=== PATIENT | male | born 1945 | race Caucasian/White ===

== ENCOUNTER 2019-12-21 20:00 | Outpatient (CLI) | payer MEDICARE, SELFPAY | END 2019-12-21 20:01 | disposition home or self-care (01) | LOC: SLEEP 12-22 09:44 | PROVIDERS: Family Provider Internal Medicine; PCP Internal Medicine; Visit Provider Family Medicine | DX: G47.10 Hypersomnia, unspecified (principal); R53.83 Other fatigue; R06.83 Snoring; G47.33 Obstructive sleep apnea (adult) (pediatric) | CPT/HCPCS: 95810 ==

== ENCOUNTER 2020-02-09 20:00 | Outpatient (CLI) | payer MEDICARE, SELFPAY | END 2020-02-09 20:01 | disposition home or self-care (01) | LOC: SLEEP 02-10 08:14 | PROVIDERS: Visit Provider Family Medicine | DX: G47.33 Obstructive sleep apnea (adult) (pediatric) (principal) | CPT/HCPCS: 95811 ==

== ENCOUNTER 2020-09-13 13:42 | Outpatient (CLI) | payer OTHER, SELFPAY ==
--- NOTE | 2020-09-13 13:47 | US_ITS ---
WS: [id number] RENAL ULTRASOUND HISTORY: STAGE 3 CHRONIC KIDNEY DZ COMPARISON: None available. TECHNIQUE: 2-D and color Doppler imaging of the kidney submitted. Right kidney: 13.1 cm x 5.2 cm x 4.6 cm. Normal size kidney with no hydronephrosis. Very tiny cyst in the renal pelvis. Maximum diameter of 6 mm lower pole. Left kidney: LEFT kidney is been surgically removed. No mass at the LEFT renal bed. Normal echogenicity with no hydronephrosis or mass. Aorta: Normal. Urinary Bladder: Normal distention. Spleen is top normal size at 12.3 cm in length. US/US renal BI* [id number] IMPRESSION: 1. Status post LEFT nephrectomy. 2. Normal size RIGHT kidney with a very tiny renal cyst in the lower pole.
== END 2020-09-13 13:43 | disposition home or self-care (01) ==
LOC: RAD 13:43
PROVIDERS: Visit Provider Internal Medicine Nephrology
DX: N18.32 Chronic kidney disease, stage 3b (principal); Z90.5 Acquired absence of kidney
CPT/HCPCS: 76770

== ENCOUNTER 2021-06-22 21:54 | Emergency (ER) | payer OTHER, MEDICARE, SELFPAY ==
[2021-06-22 22:34] VITALS: BP 120/55; PULSE 88; RESP 22; TEMP 37.3; O2SAT 92; BMI 33.3
--- NOTE | 2021-06-22 22:37 | ED_ITS ---
Documented by User: RUBEN Teran 06/23/21 01:26 HPI - General Adult General: Chief complaint: Weakness Stated complaint: GENERALIZED WEAKNES/ DARK, TARRY STOOLS Time Seen by Provider: 06/22/21 22:33 History of Present Illness: 76-year-old male patient comes in today with complaints of illness for 2 weeks. Patient reports some loose stools with some dark color which he was concerned may be a sign of blood. Patient does have a positive COVID-19 exposure 3 weeks ago. Patient's been ill for 2 weeks. Patient appears mildly unwell but not toxic. Patient appears in no pain. Patient does have a history of chronic kidney disease, GERD, but cannot recall routine medications. MD complaint: Weakness and loose stools Onset (ago): week(s) Associated symptoms: Reports cough and nausea Review of Systems Resp: Reports: non-productive cough GI: Reports: nausea, diarrhea and change in stool character Physical Exam Const: COMMON NORMALS: alert HENMT: COMMON NORMALS: normocephalic and TM's normal bilaterally HEAD & SCALP: normocephalic NOSE: Nasal discharge present TYMPANIC MEMBRANE: TM's normal bilaterally MOUTH: Abnormal oral and palatal mucosa present (Dry) Eye: COMMON NORMALS: Equal, round and reactive pupils present and EOMs intact bilaterally PUPIL: Yes Equal, round and reactive pupils present Neck/C-Spine: COMMON NORMALS: full ROM Resp: COMMON NORMALS: normal respiratory effort AUSCULTATION: diminished lung sounds (Bilateral bases) Cardio: COMMON NORMALS: regular rate and regular rhythm RATE: regular rate RHYTHM: regular rhythm GI: COMMON NORMALS: Soft to palpation and non-tender PALPATION: Yes Soft to palpation Extremity: COMMON NORMALS: normal to inspection and no pedal edema Neuro: SENSORIUM/ORIENTATION: Yes alert Psych: COMMON NORMALS: cooperative Skin: COMMON NORMALS: no rashes or lesions noted GENERAL SKIN EXAM: no rashes or lesions noted Course ED course: 0, reviewed patient with Dr. Gagnon. He agreed with plan to discharge patient to home with oxygen and treatment for Covid pneumonia. We will cover with doxycycline for possible secondary bacterial etiology since it has been almost 2 weeks since patient's been ill. Patient will also be placed on dexamethasone, albuterol sulfate, and pantoprazole. I encourage plenty of fluids and follow-up with primary care in 3 days for recheck. Reevaluation(s): Reevaluation #1: 0030, patient is more alert after 1 L of IV fluid, we will infuse a second liter for dehydration. Discussed with patient his abnormal kidney function which he reports is chronic. Vital Signs: Vital signs: Vital Signs Temperature 99.1 F 06/22/21 22:34 Pulse Rate 79 06/23/21 01:00 Respiratory Rate 20 H 06/23/21 01:00 Blood Pressure 120/55 06/22/21 22:34 Pulse Oximetry 93 06/23/21 01:00 [facility] - General Adult Medical Decision Making 76-year-old male patient comes in today for concerns of diarrhea discolored stools and weakness. Patient's been ill for 2 weeks. On exam lungs are decreased in the bases. Patient was 90% on room air, heart rate was in the 80s, respirations were 22. Abdomen was soft nontender. Skin is warm and dry. No edema. EKG shows normal sinus rhythm without any ectopy or ST elevation. Differential diagnosis includes GI bleed, pneumonia, COVID-19. COVID-19 antigen test was positive, hemoglobin is 9.8, creatinine was 2.3, sodium was 133, BUN was 60. I reviewed this with Dr. Gagnon with information up from patient stating that he has some renal dysfunction. Chest x-ray noted some patchy pneumonia suggestive of a viral pneumonia. Patient was infused with 2 L of IV fluids, given 6 mg of dexamethasone and covered with doxycycline for secondary bacterial infection. Patient will be discharged home with oral antibiotics, steroids, albuterol, and pantoprazole. Patient normally takes Prilosec but has been without it for 2 to 3 weeks we will restart him due to the difference in his stools although we believe the anemia is most likely due to his chronic kidney disease. I reviewed this with Dr. Gagnon who agreed with plan. Lab Data : 06/22/21 22:45 06/22/21 22:45 Radiology Impressions Chest X-Ray 06/22/21 22:43 IMPRESSION: Nonspecific bilateral peripheral lower lung predominant opacity. Possible interstitial disease or infection. Laboratory Results WBC 7.3 10^3/uL (4.0-10.0) 06/22/21 22:45 RBC 3.48 10^6/uL (4.1-5.3) L 06/22/21:45 Hgb 9.8 g/dL (11.7-16.6) L 06/22/21:45 Hct 30.6 % (42.0-52.0) L 06/22/21:45 MCV 87.9 fl (80-94) 06/22/21:45 MCH 28.2 pg (28.0-34.0) 06/22/21: MCHC 32.0 g/dL (30.0-36.0) 06/22/21:45 RDW 15.4 % (12.1-15.1) H 06/22/21:45 Plt Count 100 10^3/cmm (130-400) L 06/22/21: MPV 13.7 fL (7.4-10.4) H 06/22/21:45 Neut % (Auto) 79.8 % 06/22/21:45 Lymph % (Auto) 9.5 % 06/22/21:45 [place] % (Auto) 9.8 % 06/22/21:45 Eos % (Auto) 0.1 % 06/22/21:45 Baso % (Auto) 0.1 % 06/22/21:45 Neut # (Auto) 5.79 10^3/uL (1.8-7.7) 06/22/21:45 Lymph # (Auto) 0.7 10^3/uL (0.8-4.8) L 06/22/21:45 [place] # (Auto) 0.7 10^3/uL (0.2-0.9) 06/22/21:45 Eos # (Auto) 0.0 10^3/uL (0.0-0.8) 06/22/21:45 Baso # (Auto) 0.0 10^3/uL (0.0-0.1) 06/22/21:45 Nucleated RBC % (auto) 0 % 06/22/21:45 Nucleated RBCs # 0.0 /100WBC 06/22/21:45 Sodium 133 mmol/L (136-145) L 06/22/21: Potassium 4.4 mmol/L (3.5-5.1) 02/05/22 22:45 Chloride 104 mmol/L (98-107) 06/22/21 22:45 Carbon Dioxide 13 mmol/L (22-29) L 06/22/21 22:45 Anion Gap 20.4 (5-19) H 06/22/21 22:45 BUN 60 mg/dL (8-23) H 06/22/21 22:45 Creatinine 2.3 mg/dL (0.7-1.2) H 06/22/21 22:45 GFR Calculation Not Reportable 06/22/21 22:45 Glucose 98 mg/dL (65-115) 06/22/21 22:45 Calculated Osmolality 293 mOsm/kg (285-295) 06/22/21 22:45 Lactic Acid 1.3 mmol/L (0.5-2.2) 06/22/21 22:57 Calcium 8.9 mg/dL (8.5-10.5) 06/22/21 22:45 Total Bilirubin 0.3 mg/dL (0.15-1.2) 06/22/21 22:45 AST 109 U/L (0-40) H 06/22/21 22:45 ALT 89 U/L (0-41) H 06/22/21 22:45 Alkaline Phosphatase 134 IU/L (40-130) H 06/22/21 22:45 Troponin T Baseline 25 ng/L (0-15) H 06/22/21 22:45 Total Protein 6.8 g/dL (6.6-8.7) 06/22/21 22:45 Albumin 3.8 g/dL (3.5-5.2) 06/22/21 22:45 Globulin 3.0 g/dL (1.3-4.6) 06/22/21 22:45 SARS-CoV-2 Ag (Rapid) Positive (Negative) H 06/22/21 23:03 EKG Data EKG 1: Interpretation: 2255, Review of the EKG noted a sinus rhythm with no ST elevation or ectopy. Regular rate at 78 bpm. Computer generated interpretation: Chest X-Ray 06/22/21 22:43 IMPRESSION: Nonspecific bilateral peripheral lower lung predominant opacity. Possible interstitial disease or infection. Discharge Plan Discharge Patient Disposition: Home Clinical Impression: Pneumonia due to 2019 novel coronavirus Condition: Stable Prescriptions: New pantoprazole 40 mg tablet,delayed release (DR/EC) 40 mg PO DAILY Qty: 30 0RF doxycycline monohydrate 100 mg capsule 100 mg PO BID 7 Days Qty: 14 0RF dexamethasone 6 mg tablet 6 mg PO DAILY Qty: 7 0RF albuterol sulfate 90 mcg/actuation HFA aerosol inhaler 2 inh inhalation QID 7 Days Qty: 8.5 0RF Discharge Orders: Discharge ED (Routine); Ordered 06/23/21 Ordered By: Remi Gar Other Ambulatory Orders: DME: Oxygen (Order) Location: None Selected Ordered By: Remi Gar Discharge Diet: Usual diet Discharge Activity: Increase activity as tolerated Patient Instructions: Viral Pneumonia (ED), Opioid Safety Activity Restrictions/Additional Instructions: Home and rest. Activity as tolerated. Use a walker or cane to help get herself up and walk in the home. Wear oxygen until your shortness of breath improves. Follow-up with primary care in 3 to 5 days for recheck. Return to the ER for worsening shortness of breath, chest pain, or new concerns. Coding Level of Care Code ED Director Of Hemophilia for Chg Fwd Exam Comprehensive Medical Decision Making Moderate Complexity Time Spent (min) 40 Documented by User: Phil Gagnon DO 06/23/21 02:09 HPI - General Adult General: Chief complaint: Weakness Stated complaint: GENERALIZED WEAKNES/ DARK, TARRY STOOLS Time Seen by Provider: 06/22/21 22:33 Course Vital Signs: Vital signs: Vital Signs Temperature 99.1 F 06/22/21 22:34 Pulse Rate 79 06/23/21 01:00 Respiratory Rate 20 H 06/23/21 01:00 Blood Pressure 120/55 06/22/21 22:34 Pulse Oximetry 93 06/23/21 01:00 MDM - General Adult Medical Decision Making 76-year-old male patient comes in today for concerns of diarrhea discolored stools and weakness. Patient's been ill for 2 weeks. On exam lungs are decreased in the bases. Patient was 90% on room air, heart rate was in the 80s, respirations were 22. Abdomen was soft nontender. Skin is warm and dry. No edema. EKG shows normal sinus rhythm without any ectopy or ST elevation. Differential diagnosis includes GI bleed, pneumonia, COVID-19. COVID-19 antigen test was positive, hemoglobin is 9.8, creatinine was 2.3, sodium was 133, BUN was 60. I reviewed this with Dr. Gagnon with information up from patient stating that he has some renal dysfunction. Chest x-ray noted some patchy pneumonia suggestive of a viral pneumonia. Patient was infused with 2 L of IV fluids, given 6 mg of dexamethasone and covered with doxycycline for secondary bacterial infection. Patient will be discharged home with oral antibiotics, steroids, albuterol, and pantoprazole. Patient normally takes Prilosec but has been without it for 2 to 3 weeks we will restart him due to the difference in his stools although we believe the anemia is most likely due to his chronic kidney disease. I reviewed this with Dr. Gagnon who agreed with plan. This patient was originally seen by RUBEN Chakraborty.? I agree with his history, evaluation, and treatment. Lab Data : 06/22/21 22:45 06/22/21 22:45 Radiology Impressions Chest X-Ray 06/22/21 22:43 IMPRESSION: Nonspecific bilateral peripheral lower lung predominant opacity. Possible interstitial disease or infection. Laboratory Results WBC 7.3 10^3/uL (4.0-10.0) 06/22/21 22:45 RBC 3.48 10^6/uL (4.1-5.3) L 06/22/21 22:45 Hgb 9.8 g/dL (11.7-16.6) L 06/22/21 22:45 Hct 30.6 % (42.0-52.0) L 06/22/21 22:45 MCV 87.9 fl (80-94) 06/22/21 22:45 MCH 28.2 pg (28.0-34.0) 06/22/21 22:45 MCHC 32.0 g/dL (30.0-36.0) 06/22/21 22:45 RDW 15.4 % (12.1-15.1) H 06/22/21 22:45 Plt Count 100 10^3/cmm (130-400) L 06/22/21 22:45 MPV 13.7 fL (7.4-10.4) H 06/22/21 22:45 Neut % (Auto) 79.8 % 06/22/21 22:45 Lymph % (Auto) 9.5 % 06/22/21 22:45 [place] % (Auto) 9.8 % 06/22/21 22:45 Eos % (Auto) 0.1 % 06/22/21 22:45 Baso % (Auto) 0.1 % 06/22/21 22:45 Neut # (Auto) 5.79 10^3/uL (1.8-7.7) 06/22/21:45 Lymph # (Auto) 0.7 10^3/uL (0.8-4.8) L 06/22/21 22:45 [place] # (Auto) 0.7 10^3/uL (0.2-0.9) 06/22/21:45 Eos # (Auto) 0.0 10^3/uL (0.0-0.8) 06/22/21 22:45 Baso # (Auto) 0.0 10^3/uL (0.0-0.1) 06/22/21:45 Nucleated RBC % (auto) 0 % 06/22/21: Nucleated RBCs # 0.0 /100WBC 06/22/21 22:45 Sodium 133 mmol/L (136-145) L 06/22/21 22:45 Potassium 4.4 mmol/L (3.5-5.1) 06/22/21 22:45 Chloride 104 mmol/L (98-107) 06/22/21 22:45 Carbon Dioxide 13 mmol/L (22-29) L 06/22/21 22:45 Anion Gap 20.4 (5-19) H 06/22/21 22:45 BUN 60 mg/dL (8-23) H 06/22/21 22:45 Creatinine 2.3 mg/dL (0.7-1.2) H 06/22/21 22:45 GFR Calculation Not Reportable 06/22/21 22:45 Glucose 98 mg/dL (65-115) 06/22/21 22:45 Calculated Osmolality 293 mOsm/kg (285-295) 02/05/22 22:45 Lactic Acid 1.3 mmol/L (0.5-2.2) 06/22/21 22:57 Calcium 8.9 mg/dL (8.5-10.5) 06/22/21 22:45 Total Bilirubin 0.3 mg/dL (0.15-1.2) 06/22/21 22:45 AST 109 U/L (0-40) H 06/22/21 22:45 ALT 89 U/L (0-41) H 06/22/21 22:45 Alkaline Phosphatase 134 IU/L (40-130) H 06/22/21 22:45 Troponin T Baseline 25 ng/L (0-15) H 06/22/21 22:45 Total Protein 6.8 g/dL (6.6-8.7) 06/22/21 22:45 Albumin 3.8 g/dL (3.5-5.2) 06/22/21 22:45 Globulin 3.0 g/dL (1.3-4.6) 06/22/21 22:45 SARS-CoV-2 Ag (Rapid) Positive (Negative) H 06/22/21 23:03 EKG Data EKG 1: Computer generated interpretation: Chest X-Ray 06/22/21 22:43 IMPRESSION: Nonspecific bilateral peripheral lower lung predominant opacity. Possible interstitial disease or infection. Discharge Plan Discharge Patient Disposition: Home Clinical Impression: Pneumonia due to 2019 novel coronavirus Condition: Stable Prescriptions: New pantoprazole 40 mg tablet,delayed release (DR/EC) 40 mg PO DAILY Qty: 30 0RF doxycycline monohydrate 100 mg capsule 100 mg PO BID 7 Days Qty: 14 0RF dexamethasone 6 mg tablet 6 mg PO DAILY Qty: 7 0RF albuterol sulfate 90 mcg/actuation HFA aerosol inhaler 2 inh inhalation QID 7 Days Qty: 8.5 0RF Discharge Orders: Discharge ED (Routine); Ordered 06/23/21 Ordered By: Remi Gar Other Ambulatory Orders: DME: Oxygen (Order) Location: None Selected Ordered By: Remi Gar Discharge Diet: Usual diet Discharge Activity: Increase activity as tolerated Patient Instructions: Viral Pneumonia (ED), Opioid Safety Activity Restrictions/Additional Instructions: Home and rest. Activity as tolerated. Use a walker or cane to help get herself up and walk in the home. Wear oxygen until your shortness of breath improves. Follow-up with primary care in 3 to 5 days for recheck. Return to the ER for worsening shortness of breath, chest pain, or new concerns. Coding Level of Care Code ED Director Of Hemophilia for Gabig Fwd Exam Comprehensive Medical Decision Making Moderate Complexity Time Spent (min) 40
--- NOTE | 2021-06-22 22:43 | XRR_ITS ---
PROCEDURE INFORMATION: Exam: XR Chest Exam date and time: 06/22/2021 10:43 PM Age: 76 years old Clinical indication: Cough; Additional info: Weakness, cough TECHNIQUE: Imaging protocol: XR of the chest. Views: 1 view. COMPARISON: No relevant prior studies available. FINDINGS: Lungs: Ill-defined subpleural opacity in the lateral aspect of the lower lungs bilaterally. Pleural spaces: There is no pleural effusion or pneumothorax. Heart/Mediastinum: Cardiomediastinal contours are unremarkable. Bones/joints: Bones are unremarkable. XR/XR chest 1V portable [id number] IMPRESSION: Nonspecific bilateral peripheral lower lung predominant opacity. Possible interstitial disease or infection.
--- NOTE | 2021-06-22 22:44 | ECG_ITS ---
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 Measurements Intervals [place] Rate: 75 P: 81 AL: 161 QRS: 10 QRSD: 81 T: 31 QT: 368 QTc: 413 Interpretive Statements SINUS RHYTHM No previous ECG available for comparison Electronically Signed On 06-23-2021 16:59:11 SALES ANALYTICS MANAGER by Francheska Ortiz M.D. [id number]
[2021-06-22] MEDS: sodium chloride 0.9% 1,000 ML 999 ML IV (23:00)
[2021-06-22 23:07] LABS: Basophils % 0.1 %; Eosinophils % 0.1 %; Hematocrit 30.6 % (42.0-52.0); Hemoglobin 9.8 g/dL (11.7-16.6); Lymphocytes # 0.7 10^3/uL (0.8-4.8); Lymphocytes % 9.5 %; Mean Corpuscular Hemoglobin 28.2 pg (28.0-34.0); Mean Corpuscular Volume 87.9 fl (80-94); Mean Platelet Volume 13.7 fL (7.4-10.4); Monocytes # 0.7 10^3/uL (0.2-0.9); Monocytes % 9.8 %; Neutrophils # 5.79 10^3/uL (1.8-7.7); Neutrophils % 79.8 %; Nucleated Red Blood Cells % 0 %; Platelet Count 100 10^3/cmm (130-400); Red Blood Count 3.48 10^6/uL (4.1-5.3); Red Cell Distribution Width 15.4 % (12.1-15.1); White Blood Count 7.3 10^3/uL (4.0-10.0)
[2021-06-22 23:31] LABS: Alanine Aminotransferase 89 U/L (0-41); Albumin Level 3.8 g/dL (3.5-5.2); Alkaline Phosphatase 134 IU/L (40-130); Anion Gap 20.4 (5-19); Aspartate Amino Transferase 109 U/L (0-40); Blood Urea Nitrogen 60 mg/dL (8-23); Calcium 8.9 mg/dL (8.5-10.5); Carbon Dioxide 13 mmol/L (22-29); Chloride 104 mmol/L (98-107); Glucose 98 mg/dL (65-115); Osmolality Calculated 293 mOsm/kg (285-295); Potassium 4.4 mmol/L (3.5-5.1); Sodium 133 mmol/L (136-145); Total Bilirubin 0.3 mg/dL (0.15-1.2); Total Protein 6.8 g/dL (6.6-8.7)
[2021-06-22 23:32] LABS: Lactic Sepsis W/Reflex 1.3 mmol/L (0.5-2.2)
[2021-06-22 23:34] LABS: Troponin(5th) Baseline 25 ng/L (0-15)
[2021-06-22 23:41] LABS: SARS Covid-2 Antigen Positive (Negative)
[2021-06-22] MEDS: lactated ringers 1,000 ML 999 ML IV (23:55)
[2021-06-22] MEDS: dexamethasone 10 mg/mL INJ 6 MG IVP (23:55)
[2021-06-22] MEDS: pantoprazole 40 mg SDV IVP (23:55)
[2021-06-23] MEDS: doxycycline 100 MG in sodium chloride 0.9% (plus) 100 ML IV (00:33)
--- NOTE | 2021-06-23 00:44 | ECG_ITS ---
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 Measurements Intervals [place] Rate: 76 P: 62 FL: 169 QRS: 11 QRSD: 98 T: 30 QT: 385 QTc: 435 Interpretive Statements SINUS RHYTHM WITH SINUS ARRHYTHMIA No previous ECG available for comparison Electronically Signed On 06-23-2021 17:04:03 FINISHER ACCORDION by Francheska Ortiz M.D. [id number]
[2021-06-23 00:52] VITALS: O2SAT 88; O2SAT 90; O2SAT 93
[2021-06-23 01:00] VITALS: PULSE 79; RESP 20; O2SAT 93
[2021-06-23] MEDS: albuterol 8 gm MDI 2 PUFF INHALATION (01:00)
== END 2021-06-23 01:53 | disposition home or self-care (01) ==
PROVIDERS: Emergency Provider Nurse Practitioner Family
DX: U07.1 COVID-19 (principal); J12.82 Pneumonia due to coronavirus disease 2019
CPT/HCPCS: 71045; 80053; 83605; 84484; 85025; 87426; 93005; 94640; 96361; 96365; 96375; 99284; C9113; J1100; J3490; J3535; J7030

== ENCOUNTER 2021-11-04 09:13 | Outpatient (CLI) | payer OTHER, MEDICARE, SELFPAY ==
--- NOTE | 2021-11-04 09:29 | FL_ITS ---
WS: [id number] Exam: FL barium swallow modifd [id number] Date/Time of Exam: 11/04/2021 9:29 AM Reason For Exam: Other dysphagia Fluoroscopy time: 3min [id number] minutes # of spot films: 0 Modified barium swallow was performed in conjunction with the speech therapy service. Swallowing function at the level of the oropharynx was normal. The patient experienced mild penetrati on into the laryngeal inlet when ingesting thin liquid barium solution. The patient tolerated nectar consistency, pudding consistency and solid barium mixture foodstuffs without complication. The patien t ingested the barium pill without difficulty. FL/FL barium swallow modifd [id number] IMPRESSION: 1. No aspiration was noted. 2. The patient experienced minimal penetration into the laryngeal inlet when in gesting thin liquid barium solution. An additional report of findings and recommendations will be provided by the [facility] therapy service.
== END 2021-11-04 09:14 | disposition home or self-care (01) ==
LOC: RAD 09:19
PROVIDERS: Visit Provider Family Medicine
DX: R13.19 Other dysphagia (principal)
CPT/HCPCS: 74230; 92611

== ENCOUNTER → 2022-02-27 14:30 | Outpatient (BNVA) | payer OTHER, SELFPAY | PROVIDERS: Referring Provider Family Medicine; Visit Provider Physician Assistant | DX: M48.062 Spinal stenosis, lumbar region with neurogenic claudication (principal); M51.37 Other intervertebral disc degeneration, lumbosacral region; M47.816 Spondylosis without myelopathy or radiculopathy, lumbar region | CPT/HCPCS: 72110; 99203 ==

== ENCOUNTER 2022-03-20 07:51 | Oncology outpatient (recurring) (ONCR) | payer OTHER, SELFPAY ==
[2022-03-20 09:35] LABS: Basophils % 0.3 %; Eosinophils % 0.3 %; Hemoglobin 8.4 g/dL (11.7-16.6); Lymphocytes # 0.6 10^3/uL (0.8-4.8); Mean Corpuscular Hemoglobin 24.3 pg (28.0-34.0); Mean Corpuscular Volume 83.8 fl (80-94); Monocytes # 0.3 10^3/uL (0.2-0.9); Monocytes % 8.6 %; Neutrophils # 2.73 10^3/uL (1.8-7.7); Neutrophils % 73.5 %; Nucleated Red Blood Cells % 0 %; Platelet Count 75 10^3/cmm (130-400); Red Blood Count 3.46 10^6/uL (4.1-5.3); White Blood Count 3.7 10^3/uL (4.0-10.0)
[2022-03-20 09:38] LABS: Slide Review Slide Review Perform
[2022-03-20 09:42] LABS: Reticulocyte % 1.6 % (0.5-2.0)
[2022-03-20 10:32] LABS: Ferritin 6 ng/mL (30-400); Iron 40 ug/dL (59-158); Percent Saturation 8.7 % (20-50); Total Iron Binding Capacity 458 mcg/dl; Unsaturated Iron Binding 418 ug/dL (112-347)
[2022-03-20 10:48] LABS: Vitamin B12 982 pg/mL (232-1245)
== END 2022-04-16 23:59 | disposition home or self-care (01) ==
PROVIDERS: Visit Provider Internal Medicine Hematology & Oncology
DX: D61.818 Other pancytopenia; D50.9 Iron deficiency anemia, unspecified; D72.819 Decreased white blood cell count, unspecified; D69.6 Thrombocytopenia, unspecified; Z79.899 Other long term (current) drug therapy; Z86.16 Personal history of COVID-19; Z87.891 Personal history of nicotine dependence
CPT/HCPCS: 36415; 82607; 82728; 83540; 83550; 85025; 85045; 99203; 99204

== ENCOUNTER 2022-04-03 14:10 | Outpatient (CLI) | payer OTHER, SELFPAY ==
--- NOTE | 2022-04-03 14:30 | MR_ITS ---
WS: [id number] MRI LUMBAR SPINE NONCONTRAST HISTORY: lower back pain COMPARISON: None available. TECHNIQUE: Sagittal and axial multisequence imaging is submitted. Mild increase in lumbar lordosis. No fractures or marrow edema. Disc spaces are narrowed and desiccated. Conus terminates normally at L1. L1-L2: Mild facet arthritis. No stenosis. L2-L3: Mild facet arthritis. No stenosis. L3-L4: Mild facet arthritis. Mild LEFT foraminal stenosis. No disc protrusion. L4-L5: Mild annular disc bulge. Moderate bilateral facet joint arthritis. No focal disc protrusions. Mild bilateral foraminal stenosis. L5-S1: Mild disc bulge with moderate facet joint arthritis. Prior LEFT nephrectomy. MR/MR lumbar spine wo con* [id number] IMPRESSION: 1. No high-grade central or foraminal stenosis. 2. Moderate bilateral facet joint arthritis at L4-5 and L5-S1. 3. Mild bilateral foraminal stenosis and mild LEFT foraminal stenosis at L3-4.
== END 2022-04-03 14:11 | disposition home or self-care (01) ==
LOC: RAD 14:14
PROVIDERS: PCP Family Medicine; Visit Provider Physician Assistant
DX: M47.896 Other spondylosis, lumbar region (principal); M47.897 Other spondylosis, lumbosacral region; M48.061 Spinal stenosis, lumbar region without neurogenic claudication
CPT/HCPCS: 72148

== ENCOUNTER 2022-04-07 07:39 | Day surgery (SDC) | payer OTHER, SELFPAY ==
[2022-04-03 11:58] VITALS: BMI 34.5
--- NOTE | 2022-04-07 05:56 | W.PM.OPSUD ---
Surgery/Procedure H&P Update DATE OF PROCEDURE: April 07, 2022 DATE H&P PERFORMED: 03/20/22 H&P UPDATE INFORMATION: I have reviewed H&P completed within last 30 days, I have examined patient prior to procedure and No changes to prior documentation PRIMARY INDICATION FOR PROCEDURE: Iron deficiency anemia PLANNED PROCEDURE: Operation Date: 04/07/22 08:15 Proposed Procedures p Colonoscopy 37759,K92.1(Not Applicable) - Adeel Chahal MD
[2022-04-07 08:04] VITALS: BP 180/102; PULSE 82; RESP 18; TEMP 36.8; O2SAT 96
[2022-04-07] MEDS: sodium chloride 0.9% 1,000 ML 30 ML IV (08:08)
--- NOTE | 2022-04-07 08:36 | ANES.PREANE2 ---
Pre-Anesthetic Assessment Height/Weight: Height 1.75 m Weight 106.141 kg Temp Pulse Resp BP Pulse Ox O2 Del Method 98.2 F 82 18 180/102 96 04/07/22 08:04 04/07/22 08:04 04/07/22 08:04 04/07/22 08:04 04/07/22 08:04 04/07/22 08:04 Preop Diagnosis: Iron deficiency anemia/fecal occult blood in stool Operation Date: 04/07/22 08:15 Proposed Procedures p Colonoscopy 80210,K92.1(Not Applicable) - Adeel Chahal MD Familial anesthetic complications: none Was Beta Desi taken within 24 hours: N/A Was Clonidine taken within 24 hours: N/A Last intake: Intake Last Liquid Date 04/06/22 Last Liquid Time 00:00 Last Solid Date 04/05/22 Last Solid Time 00:00 Social No alcohol and No tobacco Exam alert, oriented x 3, clear to auscultation bilaterally and regular rate & rhythm Airway Submandibular: within normal limits Cervical ROM: within normal limits Mallampati: Class II Dentition: false (upper) Comments: Comments: Missing most on lower arch CV/HEM Anemia, Hypertension and Murmur ?MVR Chronic Renal Insufficiency GI Gastroesophageal Reflux Disease Metabolic Hyperlipidemia and Morbid Obesity [facility] Lower Back Pain and Weakness Anesthetic Plan ASA status: 3 Anesthesia: MAC Medications/Allergies Home Medications Medication Instructions Recorded Confirmed Last Taken Type allopurinol 100 mg tablet 100 mg PO DAILY 02/27/22 04/07/22 Unknown History amlodipine 2.5 mg tablet 2.5 mg PO DAILY 02/27/22 04/07/22 04/07/22 History ascorbate calcium (vitamin C) 500 500 mg PO DAILY 02/27/22 04/07/22 04/05/22 History mg tablet aspirin 81 mg tablet,delayed 81 mg PO DAILY 02/27/22 04/03/22 04/03/22 History release fluticasone 100 mcg-salmeterol 50 1 inh inhalation BID 02/27/22 04/07/22 04/07/22 History mcg/dose blistr powdr for inhalation fluticasone propionate 50 1 spray intranasal DAILY 02/27/22 04/07/22 04/07/22 History mcg/actuation nasal spray,suspension (Flonase Allergy Relief) hydrochlorothiazide 25 mg tablet 25 mg PO DAILY 02/27/22 04/07/22 04/07/22 History loratadine 10 mg tablet (Allergy 10 mg PO DAILY 02/27/22 04/07/22 04/05/22 History Relief (loratadine)) methocarbamol 750 mg tablet 750 mg PO TID 02/27/22 04/07/22 Unknown History omeprazole magnesium 20 mg 20 mg PO BID 02/27/22 04/07/22 04/06/22 History capsule,delayed release (Acid Cognos Developer (omeprazole)) pravastatin 40 mg tablet 40 mg PO DAILY 02/27/22 04/07/22 04/06/22 History pregabalin 150 mg capsule 150 mg PO BID 02/27/22 04/07/22 04/06/22 History tamsulosin 0.4 mg capsule 0.4 mg PO DAILY 02/27/22 04/07/22 04/06/22 History tiotropium bromide 2.5 2 puff inhalation DAILY 02/27/22 04/07/22 04/07/22 History mcg/actuation mist for inhalation (Spiriva Respimat) zinc gluconate 50 mg tablet 50 mg PO DAILY 02/27/22 04/07/22 04/06/22 History calcium citrate 315 mg-vitamin D3 1 tab PO DAILY 03/20/22 04/03/22 04/03/22 History 5 mcg (200 unit) tablet cholecalciferol (vitamin D3) 25 25 mcg PO DAILY 03/20/22 04/07/22 04/05/22 History mcg (1,000 unit) capsule ferrous gluconate 324 mg (38 mg 648 mg PO DAILY 30 days #60 tabs 03/20/22 04/07/22 04/06/22 Rx iron) tablet guaifenesin 200 mg tablet 200 mg PO DAILY PRN Congestion 03/20/22 04/07/22 Unknown History lisinopril 5 mg tablet 7.5 mg PO DAILY 03/20/22 04/07/22 04/06/22 History Allergies Allergy/AdvReac Type Severity Reaction Status Date / Time Penicillins Allergy ALGY-Hives Verified 03/21/22 10:30 Sulfa (Sulfonamide Allergy ALGY-Hives Verified 03/21/22 10:30 Antibiotics) Current Medications Generic Name Dose Route Start Last Admin Trade Name Freq PRN Reason Stop Dose Admin Sodium Chloride 1,000 mls @ 30 mls/hr 04/07/22 07:15 04/07/22 08:08 Sodium Chloride 0.9% IV 30 mls/hr .Q24H PRUDENCIO Administration PFSH Anesthesia Medical History (Updated 03/21/22 @ 12:20 by Molly Patterson MD) Pancytopenia Family History Mother COPD with acute exacerbation Sister COPD with acute exacerbation Other Cancer Social History Smoking and tobacco status: former smoker (smoked a pipd) Second hand smoke exposure: Yes Smoking risk assessment/counseling performed?: No Alcohol intake: never Adopted: No Caregiver/support person: Yes Lives independently: Yes Household members: significant other Housing: House Number of children: 2 Number of grandchildren: 4 Highest education level completed: 7th Grade service: Yes status: Discharged branch: [employer] Current occupational exposures/hazards: No Pets and animals: Yes Sexually active: Yes Current gender identity: Male Special shaun needs: No Agree to transfusion: Yes Data Anesthesia Cardiac Studies: No Data to Display
[2022-04-07 10:15] VITALS: BP 111/57; PULSE 67; RESP 16; TEMP 36.2; O2SAT 92
[2022-04-07 10:25] VITALS: BP 129/61; PULSE 67; RESP 16; O2SAT 95
--- NOTE | 2022-04-07 15:35 | ANE.PACU2 ---
Inpatient post-anesthesia follow up: Airway intact: Yes Vital signs: Temperature 97.2 F Pulse Rate 67 Respiratory Rate 16 Blood Pressure 129/61 Pulse Oximetry 95 Oxygen Delivery Me thod Room Air Oxygen Flow Rate Fraction of Inspir ed Oxygen Hydration adequate: Yes Nausea and vomiting: No Pain level: 2 Mental status: Baseline
== END 2022-04-07 10:39 | disposition home or self-care (01) ==
PROVIDERS: PCP Family Medicine; Visit Provider Surgery
PROC: 0DJD8ZZ Inspection of Lower Intestinal Tract, Via Natural or Artificial Opening Endoscopic (ICD-10-PCS; CPT 45378; principal; 2022-04-07 08:15)
DX: D50.9 Iron deficiency anemia, unspecified (principal); D12.2 Benign neoplasm of ascending colon; D12.4 Benign neoplasm of descending colon; I10 Essential (primary) hypertension; K21.9 Gastro-esophageal reflux disease without esophagitis; E78.5 Hyperlipidemia, unspecified; E66.01 Morbid (severe) obesity due to excess calories; Z68.34 Body mass index [BMI] 34.0-34.9, adult
CPT/HCPCS: 45380; 45385; 80503; 88305; J2704; J7030

== ENCOUNTER 2022-04-22 14:11 | Oncology outpatient (recurring) (ONCR) | payer OTHER, SELFPAY ==
[2022-04-22 14:43] LABS: Basophils % 0.3 %; Eosinophils % 0.2 %; Hematocrit 37.2 % (42.0-52.0); Hemoglobin 11.3 g/dL (11.7-16.6); Lymphocytes # 0.8 10^3/uL (0.8-4.8); Lymphocytes % 12.7 %; Mean Corpuscular HGB Conc 30.4 g/dL (30.0-36.0); Mean Corpuscular Hemoglobin 27.2 pg (28.0-34.0); Mean Corpuscular Volume 89.4 fl (80-94); Monocytes # 0.4 10^3/uL (0.2-0.9); Monocytes % 6.1 %; Neutrophils # 5.32 10^3/uL (1.8-7.7); Neutrophils % 80.4 %; Nucleated Red Blood Cells % 0 %; Platelet Count 74 10^3/cmm (130-400); Red Blood Count 4.16 10^6/uL (4.1-5.3); Red Cell Distribution Width 21.2 % (12.1-15.1); White Blood Count 6.6 10^3/uL (4.0-10.0)
[2022-04-22 15:02] LABS: Ferritin 57 ng/mL (30-400); Iron 318 ug/dL (59-158); Percent Saturation 74.8 % (20-50); Total Iron Binding Capacity 425 mcg/dl; Unsaturated Iron Binding 107 ug/dL (112-347)
== END 2022-05-17 23:59 | disposition home or self-care (01) ==
PROVIDERS: PCP Family Medicine; Visit Provider Internal Medicine Hematology & Oncology
DX: D61.818 Other pancytopenia (principal); D50.9 Iron deficiency anemia, unspecified; D69.6 Thrombocytopenia, unspecified; Z79.899 Other long term (current) drug therapy; Z87.891 Personal history of nicotine dependence
CPT/HCPCS: 36415; 82728; 83540; 83550; 85025; 99214

== ENCOUNTER → 2022-04-23 15:00 | Outpatient (BNVA) | payer OTHER, SELFPAY | PROVIDERS: PCP Family Medicine; Visit Provider Surgery | DX: Z09 Encounter for follow-up examination after completed treatment for conditions other than malignant neoplasm (principal); K63.5 Polyp of colon | CPT/HCPCS: 99213 ==

== ENCOUNTER 2022-07-09 13:17 | Oncology outpatient (recurring) (ONCR) | payer OTHER, SELFPAY ==
[2022-07-09 15:06] LABS: Ferritin 32 ng/mL (30-400); Iron 59 ug/dL (59-158); Total Iron Binding Capacity 310 mcg/dl; Unsaturated Iron Binding 251 ug/dL (112-347)
[2022-07-09 15:20] LABS: Basophils % 0.3 %; Eosinophils % 0.3 %; Hematocrit 36.5 % (42.0-52.0); Hemoglobin 12.1 g/dL (11.7-16.6); Lymphocytes # 0.7 10^3/uL (0.8-4.8); Mean Corpuscular HGB Conc 33.2 g/dL (30.0-36.0); Mean Corpuscular Hemoglobin 31.9 pg (28.0-34.0); Mean Corpuscular Volume 96.3 fl (80-94); Mean Platelet Volume 12.7 fL (7.4-10.4); Monocytes # 0.3 10^3/uL (0.2-0.9); Monocytes % 6.9 %; Neutrophils # 2.93 10^3/uL (1.8-7.7); Neutrophils % 75.2 %; Nucleated Red Blood Cells % 0 %; Platelet Count 54 10^3/cmm (130-400); Red Blood Count 3.79 10^6/uL (4.1-5.3); Red Cell Distribution Width 14.6 % (12.1-15.1); White Blood Count 3.9 10^3/uL (4.0-10.0)
[2022-07-09 15:21] LABS: Slide Review Slide Review Perform
== END 2022-07-15 23:59 | disposition home or self-care (01) ==
PROVIDERS: PCP Family Medicine; Visit Provider Internal Medicine Hematology & Oncology
DX: D61.818 Other pancytopenia (principal); D50.9 Iron deficiency anemia, unspecified; Z79.899 Other long term (current) drug therapy; Z87.891 Personal history of nicotine dependence
CPT/HCPCS: 36415; 82728; 83540; 83550; 85025; 99214

== ENCOUNTER 2022-08-06 13:50 | Oncology outpatient (recurring) (ONCR) | payer OTHER, SELFPAY ==
[2022-08-06 14:20] LABS: Basophils % 0.2 %; Eosinophils % 0.2 %; Hematocrit 35.4 % (42.0-52.0); Hemoglobin 11.8 g/dL (11.7-16.6); Lymphocytes # 0.7 10^3/uL (0.8-4.8); Lymphocytes % 15.5 %; Mean Corpuscular HGB Conc 33.3 g/dL (30.0-36.0); Mean Corpuscular Hemoglobin 31.4 pg (28.0-34.0); Mean Corpuscular Volume 94.1 fl (80-94); Mean Platelet Volume 13.3 fL (7.4-10.4); Monocytes # 0.3 10^3/uL (0.2-0.9); Monocytes % 7.2 %; Neutrophils # 3.52 10^3/uL (1.8-7.7); Neutrophils % 76.7 %; Nucleated Red Blood Cells % 0 %; Platelet Count 59 10^3/cmm (130-400); Red Blood Count 3.76 10^6/uL (4.1-5.3); Red Cell Distribution Width 13.2 % (12.1-15.1); White Blood Count 4.6 10^3/uL (4.0-10.0)
[2022-08-06 14:47] LABS: Slide Review Slide Review Perform
== END 2022-08-15 23:59 | disposition home or self-care (01) ==
PROVIDERS: PCP Family Medicine; Visit Provider Internal Medicine Hematology & Oncology
DX: D61.818 Other pancytopenia (principal); D50.0 Iron deficiency anemia secondary to blood loss (chronic); D69.6 Thrombocytopenia, unspecified; Z79.899 Other long term (current) drug therapy
CPT/HCPCS: 85025; 99214

== ENCOUNTER 2022-08-11 16:37 | Outpatient (CLI) | payer OTHER, SELFPAY ==
--- NOTE | 2022-08-11 17:00 | US_ITS ---
WS: [id number] Complete ABDOMINAL ULTRASOUND HISTORY: Pancytopenia. COMPARISON: 09/13/2020, 09/21/2007 Liver: 17.0 cm in length. Normal size liver. Marked coarse echotexture. Surface of the liver is nodul ar. No mass identified. Portal Vein: Normal hepatopetal flow with monophasic waveform. Gallbladder: Status post cholecystectomy. CBD: 0.6 cm Pancreas: Completely obscured by bowel gas. Right kidney: 13.1 cm x 5.2 x 5.2 cm. Cortex:1.7 cm. Normal size and echogenicity. No hydronephrosis or mass. Left kidney: Prior nephrectomy. Spleen: Spleen is mildly enlarged measuring 13.9 cm in length. Coarse echotexture throughout with no mass. Similar size spleen compared to 09/13/2020. Aorta and IVC: Unremarkable abdominal aorta and IVC. US/US abdomen complete* [id number] Impression: 1. Prior cholecystectomy and LEFT nephrectomy. 2. Marked coarse echotexture throughout the liver. Suspect cirrhosis. 3. Mild splenomegaly. Similar to the prior study 2020.
== END 2022-08-11 16:38 | disposition home or self-care (01) ==
LOC: RAD 16:37
PROVIDERS: PCP Family Medicine; Visit Provider Internal Medicine Hematology & Oncology
DX: D61.818 Other pancytopenia (principal); Z90.49 Acquired absence of other specified parts of digestive tract; Z90.5 Acquired absence of kidney; R16.1 Splenomegaly, not elsewhere classified
CPT/HCPCS: 76700

== ENCOUNTER 2022-08-18 08:28 | Oncology outpatient (recurring) (ONCR) | payer OTHER, SELFPAY ==
[2022-08-18 09:03] LABS: Basophils % 0.5 %; Eosinophils % 0.5 %; Hematocrit 33.5 % (42.0-52.0); Lymphocytes # 0.7 10^3/uL (0.8-4.8); Mean Corpuscular HGB Conc 32.8 g/dL (30.0-36.0); Mean Corpuscular Hemoglobin 31.8 pg (28.0-34.0); Mean Corpuscular Volume 96.8 fl (80-94); Mean Platelet Volume 12.2 fL (7.4-10.4); Monocytes # 0.3 10^3/uL (0.2-0.9); Monocytes % 7.8 %; Neutrophils # 2.96 10^3/uL (1.8-7.7); Neutrophils % 73.9 %; Nucleated Red Blood Cells % 0 %; Platelet Count 67 10^3/cmm (130-400); Red Blood Count 3.46 10^6/uL (4.1-5.3); Red Cell Distribution Width 13.5 % (12.1-15.1)
== END 2022-09-14 23:59 | disposition home or self-care (01) ==
PROVIDERS: PCP Family Medicine; Visit Provider Internal Medicine Hematology & Oncology
DX: D50.0 Iron deficiency anemia secondary to blood loss (chronic) (principal); D61.818 Other pancytopenia; D69.6 Thrombocytopenia, unspecified; Z79.899 Other long term (current) drug therapy; Z87.891 Personal history of nicotine dependence; R16.1 Splenomegaly, not elsewhere classified
CPT/HCPCS: 36415; 85025; 99214

== ENCOUNTER 2022-09-16 11:53 | Oncology outpatient (recurring) (ONCR) | payer OTHER, SELFPAY ==
[2022-09-16 12:46] LABS: Basophils % 0.3 %; Eosinophils % 0.3 %; Hematocrit 34.8 % (42.0-52.0); Hemoglobin 11.1 g/dL (11.7-16.6); Lymphocytes # 0.4 10^3/uL (0.8-4.8); Mean Corpuscular HGB Conc 31.9 g/dL (30.0-36.0); Mean Corpuscular Hemoglobin 29.8 pg (28.0-34.0); Mean Corpuscular Volume 93.3 fl (80-94); Monocytes # 0.3 10^3/uL (0.2-0.9); Monocytes % 6.8 %; Neutrophils # 3.25 10^3/uL (1.8-7.7); Neutrophils % 81.1 %; Nucleated Red Blood Cells % 0 %; Platelet Count 61 10^3/cmm (130-400); Red Blood Count 3.73 10^6/uL (4.1-5.3); Red Cell Distribution Width 13.5 % (12.1-15.1)
[2022-09-16 12:54] LABS: Alanine Aminotransferase 37 U/L (0-41); Albumin Level 4.2 g/dL (3.5-5.2); Alkaline Phosphatase 143 U/L (40-130); Anion Gap 15.3 (5-19); Aspartate Amino Transferase 50 U/L (0-40); Blood Urea Nitrogen 19 mg/dL (8-23); Calcium 9.1 mg/dL (8.5-10.5); Carbon Dioxide 24 mmol/L (22-29); Chloride 102 mmol/L (98-107); Ferritin 19 ng/mL (30-400); Globulin 2.7 g/dL (1.3-4.6); Glucose 110 mg/dL (65-115); Iron 123 ug/dL (59-158); Osmolality Calculated 287 mOsm/kg (285-295); Percent Saturation 32.2 % (20-50); Potassium 4.3 mmol/L (3.5-5.1); Sodium 137 mmol/L (136-145); Total Bilirubin 0.5 mg/dL (0.15-1.2); Total Iron Binding Capacity 381 mcg/dl; Total Protein 6.9 g/dL (6.6-8.7); Unsaturated Iron Binding 258 ug/dL (112-347)
== END 2022-10-15 23:59 | disposition home or self-care (01) ==
PROVIDERS: Nurse Practitioner Family; PCP Family Medicine; Visit Provider Internal Medicine Hematology & Oncology
DX: D50.0 Iron deficiency anemia secondary to blood loss (chronic) (principal); D61.818 Other pancytopenia; D69.6 Thrombocytopenia, unspecified; R16.1 Splenomegaly, not elsewhere classified; Z79.899 Other long term (current) drug therapy; Z87.891 Personal history of nicotine dependence; K74.60 Unspecified cirrhosis of liver
CPT/HCPCS: 36415; 80053; 82728; 83540; 83550; 85025; 99214

== ENCOUNTER → 2023-07-29 10:01 | Outpatient (BNVA) | payer OTHER, SELFPAY | PROVIDERS: PCP Emergency Medicine Emergency Medical Services; Visit Provider Podiatrist Foot & Ankle Surgery | DX: M79.671 Pain in right foot (principal); M72.2 Plantar fascial fibromatosis; M24.571 Contracture, right ankle | CPT/HCPCS: 73630; 99203 ==

== ENCOUNTER 2023-09-03 12:30 | Oncology outpatient (recurring) (ONCR) | payer OTHER, SELFPAY ==
[2023-08-26 13:26] LABS: Basophils % 0.3 %; Eosinophils % 0.5 %; Hematocrit 30.2 % (37-53); Lymphocytes # 0.5 10^3/uL (0.8-4.8); Lymphocytes % 12.3 %; Mean Corpuscular HGB Conc 32.8 g/dL (30-55); Mean Corpuscular Hemoglobin 31.1 pg (27-33); Monocytes # 0.4 10^3/uL (0.2-0.9); Monocytes % 9.4 %; Neutrophils # 2.94 10^3/uL (1.8-7.7); Nucleated Red Blood Cells % 0 %; Platelet Count 70 10^3/cmm (157-399); Red Blood Count 3.18 10^6/uL (3.85-5.65); Red Cell Distribution Width 15.1 % (12.1-15.1); White Blood Count 3.82 10^3/uL (3.29-11.43)
[2023-08-26 13:46] LABS: Alanine Aminotransferase 47 U/L (0-41); Albumin Level 3.7 g/dL (3.5-5.2); Alkaline Phosphatase 181 U/L (40-130); Aspartate Amino Transferase 58 U/L (0-40); Blood Urea Nitrogen 18 mg/dL (8-23); Calcium 8.5 mg/dL (8.5-10.5); Carbon Dioxide 22 mmol/L (22-29); Chloride 109 mmol/L (98-107); Ferritin 22 ng/mL (30-400); Globulin 2.6 g/dL (1.3-4.6); Glucose 97 mg/dL (65-115); Iron 38 ug/dL (59-158); Osmolality Calculated 294 mOsm/kg (285-295); Percent Saturation 12.7 % (20-50); Sodium 141 mmol/L (136-145); Total Bilirubin 0.5 mg/dL (0.15-1.2); Total Iron Binding Capacity 299 mcg/dl; Total Protein 6.3 g/dL (6.6-8.7); Unsaturated Iron Binding 261 ug/dL (112-347)
[2023-08-26 15:29] LABS: Erythrocyte Sedimentation Rate 8 mm/hr (0-10)
[2023-08-26] MEDS: ferric carboxy (IVPB) 750 MG in sodium chloride 0.9% (100 ml) 100 ML 345 MG IV (15:29)
[2023-08-26 15:54] LABS: Free T4 Free Thyroxine 1.08 ng/dL (0.82-1.77); Thyroid Stimulating Hormone 0.87 uIU/mL (0.27-4.20)
[2023-08-26 16:01] VITALS: BP 112/64; PULSE 68; RESP 16; TEMP 36.4; O2SAT 96
[2023-08-26 16:03] LABS: LAB Peripheral Smear Sent for Review
[2023-08-26 16:12] LABS: Folate Level 9.7 ng/mL (4.5-32.2); Hepatitis A Antibody IgM Non-Reactive (Nonreactive); Hepatitis B Core AB, Total Non-Reactive (Nonreactive); Hepatitis B Surface AB < 3.5 (11.5-1000); Hepatitis B Surface Antigen Non-Reactive (Nonreactive); Hepatitis C Virus Antibody Non-Reactive (Nonreactive)
[2023-08-26 17:17] LABS: Vitamin B12 1378 pg/mL (232-1245)
[2023-08-26 17:30] LABS: Lactate Dehydrogenase 149 U/L (135-225)
[2023-08-27 11:30] LABS: PROTEIN, TOTAL 6.3 g/dL (6.1-8.1)
[2023-08-27 15:23] LABS: ALBUMIN 3.6 g/dL (3.8-4.8); ALPHA 1 GLOBULIN 0.3 g/dL (0.2-0.3); ALPHA 2 GLOBULIN 0.7 g/dL (0.5-0.9); BETA 1 GLOBULIN 0.4 g/dL (0.4-0.6); BETA 2 GLOBULIN 0.4 g/dL (0.2-0.5); GAMMA GLOBULIN 0.9 g/dL (0.8-1.7)
[2023-08-28 12:05] LABS: Leukemia Profile (BBPL) See Report
[2023-08-28 12:10] LABS: KAPPA LIGHT CHAIN, FREE, SERUM 60.1 mg/L (3.3-19.4); KAPPA/LAMBDA LIGHT CHAINS FREE 1.64 (0.26-1.65); LAMBDA LIGHT CHAIN, FREE, SERU 36.6 mg/L (5.7-26.3)
[2023-08-28 16:59] LABS: Zinc Level, Serum or Plasma 54 mcg/dL (60-130)
[2023-08-28 17:14] LABS: Copper Level 122 mcg/dL (70-175)
[2023-08-30 17:01] LABS: Methylmalonic Acid 157 nmol/L (87-318)
[2023-09-03 13:03] VITALS: BP 130/56; PULSE 88; RESP 18; TEMP 37.1; O2SAT 95
[2023-09-03] MEDS: ferric carboxy (IVPB) 750 MG in sodium chloride 0.9% (100 ml) 100 ML 345 MG IV (13:23)
[2023-09-03 13:58] VITALS: BP 117/48; PULSE 82; RESP 18; TEMP 36.6; O2SAT 96
== END 2023-09-15 23:59 | disposition home or self-care (01) ==
PROVIDERS: Internal Medicine; PCP Emergency Medicine Emergency Medical Services; Visit Provider Internal Medicine Medical Oncology
DX: Z53.9 Procedure and treatment not carried out, unspecified reason; M72.2 Plantar fascial fibromatosis; M24.571 Contracture, right ankle; D50.9 Iron deficiency anemia, unspecified
CPT/HCPCS: 36415; 80053; 80503; 82105; 82525; 82607; 82728; 82746; 83540; 83550; 83615; 83883; 83921; 84155; 84165; 84439; 84443; 84630; 85025; 85045; 85651; 86334; 86705; 86706; 86709; 86803; 87340; 88184; 88185; 96365; 99213; 99214; J1439

== ENCOUNTER 2023-12-03 12:35 | Oncology outpatient (recurring) (ONCR) | payer OTHER, SELFPAY ==
[2023-12-03 13:20] LABS: Basophils % 0.4 %; Eosinophils % 0.8 %; Hematocrit 29.4 % (37-53); Lymphocytes # 0.3 10^3/uL (0.8-4.8); Lymphocytes % 13.4 %; Mean Corpuscular HGB Conc 32.7 g/dL (30-55); Mean Corpuscular Hemoglobin 33.7 pg (27-33); Mean Corpuscular Volume 103.2 fl (82-101); Mean Platelet Volume 12.2 fL (7.4-10.4); Monocytes # 0.1 10^3/uL (0.2-0.9); Monocytes % 5.1 %; Neutrophils # 2.03 10^3/uL (1.8-7.7); Neutrophils % 80.3 %; Nucleated Red Blood Cells % 0 %; Platelet Count 43 10^3/cmm (157-399); Red Blood Count 2.85 10^6/uL (3.85-5.65); Red Cell Distribution Width 14.9 % (12.1-15.1); White Blood Count 2.53 10^3/uL (3.29-11.43)
[2023-12-03 13:37] LABS: Alanine Aminotransferase 34 U/L (0-41); Albumin Level 3.7 g/dL (3.5-5.2); Alkaline Phosphatase 146 U/L (40-130); Aspartate Amino Transferase 39 U/L (0-40); Blood Urea Nitrogen 23 mg/dL (8-23); Calcium 8.4 mg/dL (8.5-10.5); Carbon Dioxide 20 mmol/L (22-29); Chloride 109 mmol/L (98-107); Ferritin 147 ng/mL (30-400); Globulin 2.3 g/dL (1.3-4.6); Glucose 160 mg/dL (65-115); Iron 246 ug/dL (59-158); Osmolality Calculated 297 mOsm/kg (285-295); Sodium 140 mmol/L (136-145); Total Bilirubin 0.9 mg/dL (0.15-1.2)
[2023-12-03 14:27] LABS: Tumor Marker Alpha Fetoprotein 2.9 ng/mL (0-8.3)
[2023-12-03 15:24] LABS: Total Iron Binding Capacity 265.99999 mcg/dl; Unsaturated Iron Binding < 20 ug/dL (112-347)
== END 2023-12-16 23:59 | disposition home or self-care (01) ==
LOC: ONCMED 12:36
PROVIDERS: Internal Medicine; PCP Emergency Medicine Emergency Medical Services; Visit Provider Internal Medicine Medical Oncology
DX: Z87.891 Personal history of nicotine dependence; D61.818 Other pancytopenia; D50.9 Iron deficiency anemia, unspecified; N18.9 Chronic kidney disease, unspecified; D69.6 Thrombocytopenia, unspecified; K74.60 Unspecified cirrhosis of liver; Z79.899 Other long term (current) drug therapy
CPT/HCPCS: 36415; 80053; 82105; 82728; 83540; 83550; 85025; 99214

== ENCOUNTER 2024-05-28 12:29 | Emergency (ER) | payer OTHER, MEDICARE, SELFPAY ==
[2024-05-28 12:30] VITALS: BP 176/78; PULSE 80; RESP 17; TEMP 36.5; O2SAT 93; BMI 30.6
--- NOTE | 2024-05-28 12:31 | XRR_ITS ---
PROCEDURE INFORMATION: Exam: XR Left Shoulder Exam date and time: 05/28/2024 12:40 PM Age: 79 years old Clinical indication: Left; Patient HX: Lt shoulder pain post fall; Additional info: Injurylt shoulder pain post fall TECHNIQUE: Imaging protocol: Radiologic exam of the left shoulder. Views: 2 or more views. COMPARISON: No relevant prior studies available. FINDINGS: Bones/joints: There is a comminuted mildly displaced fracture of the humeral head and neck. Joint spaces are unremarkable. Soft tissues: Normal. XR/XR shoulder LT min 2V* [id number] IMPRESSION: Humeral head and neck fracture.
--- NOTE | 2024-05-28 12:35 | W.ED.FALL ---
HPI - Fall General: Chief Complaint: Extremity Injury, Upper Stated Complaint: L shoulder dislocation Time Seen by Provider: 05/28/24 12:31 Source: patient and EMS Mode of arrival: ambulatory Limitations: no limitations History of Present Illness: 79-year-old male states that he fell today at home. States that he landed on his left shoulder has had severe left shoulder pain since the incident. Denies hitting his head denies any loss of consciousness. He rates that pain a 6 out of 10 he did receive fentanyl and route denies any other injuries Associated symptoms-after fall: Denies abdominal pain, chest pain, headache(s) or neck pain Related Data Home Medications Medication Instructions Recorded Confirmed allopurinol 100 mg tablet 100 mg PO DAILY 02/27/22 02/12/24 amlodipine 2.5 mg tablet 2.5 mg PO DAILY 02/27/22 02/12/24 ascorbate calcium (vitamin C) 500 500 mg PO DAILY 02/27/22 02/12/24 mg tablet fluticasone 100 mcg-salmeterol 50 1 inh inhalation BID 02/27/22 02/12/24 mcg/dose blistr powdr for inhalation fluticasone propionate 50 1 spray intranasal DAILY 02/27/22 02/12/24 mcg/actuation nasal spray,suspension (Flonase Allergy Relief) hydrochlorothiazide 25 mg tablet 25 mg PO DAILY 02/27/22 02/12/24 loratadine 10 mg tablet (Allergy 10 mg PO DAILY 02/27/22 02/12/24 Relief (loratadine)) methocarbamol 750 mg tablet 750 mg PO TID 02/27/22 02/12/24 omeprazole magnesium 20 mg 20 mg PO BID 02/27/22 02/12/24 capsule,delayed release (Acid Instructor Psychiatric Aide (omeprazole)) pravastatin 40 mg tablet 40 mg PO DAILY 02/27/22 02/12/24 pregabalin 150 mg capsule 150 mg PO BID 02/27/22 02/12/24 tamsulosin 0.4 mg capsule 0.4 mg PO DAILY 02/27/22 02/12/24 tiotropium bromide 2.5 2 puff inhalation DAILY 02/27/22 02/12/24 mcg/actuation mist for inhalation (Spiriva Respimat) zinc gluconate 50 mg tablet 50 mg PO DAILY 02/27/22 02/12/24 calcium 315 mg (as 1 tab PO DAILY 03/20/22 02/12/24 citrate)-vitamin D3 5 mcg (200 unit) tablet cholecalciferol (vitamin D3) 25 25 mcg PO DAILY 03/20/22 02/12/24 mcg (1,000 unit) capsule guaifenesin 200 mg tablet 200 mg PO DAILY PRN Congestion 03/20/22 02/12/24 lisinopril 5 mg tablet 7.5 mg PO DAILY 03/20/22 02/12/24 Previous Rx's Medication Instructions Recorded ferrous gluconate 324 mg (38 mg 648 mg (2 x 324 mg (38 mg iron)) 03/20/22 iron) tablet PO DAILY 30 days #60 tabs orthapedic shoes #1 ea 07/29/23 triamcinolone acetonide 0.1 % 1 applic topical BID #30 grams 01/12/24 topical ointment azithromycin 500 mg tablet 500 mg PO DAILY 5 days #5 tabs 02/12/24 (Zithromax) hydrocodone 5 mg-acetaminophen 325 1 tab PO Q6H PRN pain #14 tabs 05/28/24 mg tablet Allergies Allergy/AdvReac Type Severity Reaction Status Date / Time Penicillins Allergy ALGY-Hives Verified 02/12/24 15:47 Sulfa (Sulfonamide Allergy ALGY-Hives Verified 02/12/24 15:47 Antibiotics) Review of Systems Const: Denies: fever(s), chills, body aches or change in appetite ENMT: Denies: throat pain or dental pain Card: Denies: chest pain Resp: Denies: dyspnea GI: Denies: abdominal pain, nausea, vomiting or diarrhea Musc: Reports: extremity pain; Denies: neck pain or back pain Skin/Breast: Denies: rash Neuro: Denies: headache(s) PFSH ED PFSH: Medical History Pancytopenia Family History Mother COPD with acute exacerbation Sister COPD with acute exacerbation Other Cancer Social History Smoking and tobacco/nicotine status: former use of tobacco/nicotine Second hand smoke exposure: Yes Alcohol intake: never Substance/Drug Use: never Adopted: No Caregiver/support person: Yes Lives independently: Yes Household members: significant other Housing: House Number of children: 2 Number of grandchildren: 4 Highest education level completed: 7th Grade service: Yes status: Discharged branch: [employer] Current occupational exposures/hazards: No Pets and animals: Yes Sexually active: Yes Do you think of yourself as: Straight/Heterosexual Current gender identity: Male Special shaun needs: No Agree to transfusion: Yes Physical Exam Const: COMMON NORMALS: no acute distress, patient oriented x3 and healthy appearing HENMT: COMMON NORMALS: normocephalic and atraumatic HEAD & SCALP: normocephalic and atraumatic Eye: COMMON NORMALS: conjunctivae normal CONJUNCTIVA: Yes conjunctivae normal Neck/C-Spine: COMMON NORMALS: full ROM and supple Chest: COMMONS NORMALS: normal inspection of the chest Resp: COMMON NORMALS: normal respiratory effort, No retractions, No use of accessory muscles and clear to auscultation bilaterally AUSCULTATION: clear to auscultation bilaterally Cardio: COMMON NORMALS: regular rate, regular rhythm and No murmurs present (Cardio) RATE: regular rate RHYTHM: regular rhythm Extremity: NARRATIVE EXTREMITY EXAM: Tenderness to left shoulder distal pulses sensation intact Neuro: COMMON NORMALS: patient oriented x3, moves all extremities and no focal motor deficits Psych: COMMON NORMALS: mental status grossly normal, Normal thought process present and cooperative THOUGHT PROCESS: Normal thought process present Skin: COMMON NORMALS: no rashes or lesions noted and no wounds GENERAL SKIN EXAM: no rashes or lesions noted Course Vital Signs: Vital signs: Vital Signs Temperature 97.7 F 05/28/24 12:30 Pulse Rate 80 05/28/24 12:30 Respiratory Rate 17 05/28/24 12:30 Blood Pressure 176/78 05/28/24 12:30 Pulse Oximetry 93 05/28/24 12:30 Oxygen Delivery Me thod Room Air 05/28/24 12:30 MDM - Fall Medical Decision Making Patient presents with a humerus fracture from a fal no other injuries noted placed him in a sling will get him follow-up with orthopedics he is stable for discharge follow-up orthopedics return if worsening. Medical Records I reviewed the patient's medical records. XR interpretation done by ED provider, pending radiology final review ED provider radiology interpretation(s): X-ray left shoulder proximal humerus fracture Discharge Plan Discharge Patient Disposition: Home Clinical Impression: Fracture of humerus Condition: Stable Prescriptions: New hydrocodone-acetaminophen 5-325 mg tablet 1 tab PO Q6H PRN (Reason: pain) Qty: 14 0RF No Action pregabalin 150 mg capsule 150 mg PO BID methocarbamol 750 mg tablet 750 mg PO TID hydrochlorothiazide 25 mg tablet 25 mg PO DAILY amlodipine 2.5 mg tablet 2.5 mg PO DAILY pravastatin 40 mg tablet 40 mg PO DAILY allopurinol 100 mg tablet 100 mg PO DAILY omeprazole magnesium [Acid Instructor Psychiatric Aide (omeprazole)] 20 mg capsule,delayed release(DR/EC) 20 mg PO BID tamsulosin 0.4 mg capsule 0.4 mg PO DAILY Spiriva Respimat 2.5 mcg/actuation mist 2 puff inhalation DAILY ascorbate calcium (vitamin C) 500 mg tablet 500 mg PO DAILY loratadine [Allergy Relief (loratadine)] 10 mg tablet 10 mg PO DAILY zinc gluconate 50 mg tablet 50 mg PO DAILY fluticasone propionate [Flonase Allergy Relief] 50 mcg/actuation spray,suspension 1 spray intranasal DAILY Rx Instructions: administer into each nostril fluticasone propion-salmeterol 100-50 mcg/dose blister with device 1 inh inhalation BID lisinopril 5 mg tablet 7.5 mg PO DAILY cholecalciferol (vitamin D3) 25 mcg (1,000 unit) capsule 25 mcg PO DAILY calcium citrate-vitamin D3 315 mg-5 mcg (200 unit) tablet 1 tab PO DAILY guaifenesin 200 mg tablet 200 mg PO DAILY PRN (Reason: Congestion) ferrous gluconate 324 mg (38 mg iron) tablet 648 mg PO DAILY 30 Days Qty: 60 0RF (DME) orthapedic shoes See Rx Instructions .Route .MEDSUPPLY Qty: 1 0RF Rx Instructions: As directed to the shoe yossi triamcinolone acetonide 0.1 % ointment 1 applic topical BID Qty: 30 0RF azithromycin [Zithromax] 500 mg tablet 500 mg PO DAILY 5 Days Qty: 5 0RF Discharge Orders: Discharge ED (Routine); Ordered 05/28/24 Ordered By: Gabriela Stanley Referrals: Husam Butcher DO [Physician] - 4-7 days Kalia Bain, DO [Emergency Department] - 4-7 days Discharge Diet: Advance as tolerated Discharge Activity: Resume usual activity Patient Instructions: Arm Fracture in Adults (ED) Coding Level of Care Code ED Flat Screen Worker for Seth Hermosillo
[2024-05-28] MEDS: HYDROcodone-acetaminophen 7.5-325 mg Tablet 1 TAB PO (13:31)
[2024-05-28 13:38] VITALS: BP 166/82; PULSE 75; O2SAT 92
--- NOTE | 2024-05-30 09:05 | DCPLANNER ---
messaged ortho for er f/u
== END 2024-05-28 13:40 | disposition home or self-care (01) ==
PROVIDERS: Emergency Provider Emergency Medicine; PCP Family Medicine
DX: S42.212A Unspecified displaced fracture of surgical neck of left humerus, initial encounter for closed fracture (principal); W19.XXXA Unspecified fall, initial encounter; Z87.891 Personal history of nicotine dependence
CPT/HCPCS: 73030; 99283

== ENCOUNTER 2024-06-03 10:52 | Emergency (ER) | payer OTHER, MEDICARE, SELFPAY ==
[2024-06-03 11:45] VITALS: BP 121/49; PULSE 86; RESP 17; TEMP 36.8; O2SAT 96; BMI 24.3
--- NOTE | 2024-06-03 12:02 | XR_ITS ---
WS: [id number] XR chest 1V portable [id number] REASON FOR EXAM: Weakness FINDINGS: Moderate tortuosity and ectasia of the thoracic aorta. The heart is mildly enlarged. Mild central venous congestion. No acute pulmonary parenchymal or pleural abnormality. Minimally displaced comminuted fracture of the surgical neck of the humerus. Mild levoscoliosis with moderate degenerative spondylosis of the thoracic spine. XR/XR chest 1V portable [id number] IMPRESSION: Mild cardiomegaly and central venous congestion without definite pulmonary leonila a or other acute abnormality. Acute/subacute fracture of the left humerus as above.
--- NOTE | 2024-06-03 12:03 | ECG_ITS ---
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1945 Requested By: Keely Hill Order Number: [id number] Reading MD: CHARLY WATERS Measurements Intervals [place] Rate: 78 P: 52 IN: 126 QRS: 36 QRSD: 104 T: -9 QT: 402 QTc: 459 Interpretive Statements Atrial flutter LOW QRS VOLTAGE IN PRECORDIAL LEADS [QRS DEFLECTION < 1.0 mV IN CHEST LEADS] MODERATE T-WAVE ABNORMALITY, CONSIDER LATERAL ISCHEMIA [-0.1+ mV T-WAVE IN I/aVL/V5/V6] Compared to ECG 06/23/2021 00:39:31 there is atrial flutter now Electronically Signed On 06-03-2024 23:21:38 FIELD OBSERVER by CHARLY WATERS [email or web address]
--- NOTE | 2024-06-03 12:38 | XR_ITS ---
WS: [id number] [id number] REASON FOR EXAM: pain FINDINGS: Comminuted fracture of the surgical neck of the humerus with minimal displacement and no significant angulation. Remainder of the humerus is unremarkable. XR/[place] [id number] IMPRESSION: Proximal left humeral fracture as above.
--- NOTE | 2024-06-03 12:48 | XR_ITS ---
WS: [id number] XR forearm LT 2V [id number] REASON FOR EXAM: pain FINDINGS: The radius and ulna are intact with a normal appearing radial head and distal radial metaphysis. XR/XR forearm LT 2V [id number] IMPRESSION: No acute abnormality.
--- NOTE | 2024-06-03 12:50 | W.ED.WEAKNES ---
HPI - Weakness General: Chief complaint: Weakness Stated complaint: left arm pain/fall Time Seen by Provider: 06/03/24 12:29 History of Present Illness: 79-year-old man who presents emergency room with left arm pain and swelling after he was diagnosed with a shoulder fracture the other day and also with generalized weakness and multiple other falls. He has some generalized weakness. He tells me he broke his arm and he was supposed to wear splint for 3 days and then take it off. He does not seem to have any altered mental status. He is complaining of some ear issues and hearing problems. No known fevers. No focal motor deficits. He has extensive bruising down his entire left arm with swelling in his left hand. Review of Systems Narrative: Constitutional symptoms: Negative except as documented in HPI. Skin symptoms: Negative except as documented in HPI. Eye symptoms: Negative except as documented in HPI. ENMT symptoms: Negative except as documented in HPI. Respiratory symptoms: Negative except as documented in HPI. Cardiovascular symptoms: Negative except as documented in HPI. Gastrointestinal symptoms: Negative except as documented in HPI. Genitourinary symptoms: Negative except as documented in HPI. Musculoskeletal symptoms: Negative except as documented in HPI. Neurologic symptoms: Negative except as documented in HPI. Psychiatric symptoms: Negative except as documented in HPI. Endocrine symptoms: Negative except as documented in HPI. PFSH ED PFSH: Medical History Pancytopenia Family History Mother COPD with acute exacerbation Sister COPD with acute exacerbation Other Cancer Social History Smoking and tobacco/nicotine status: former use of tobacco/nicotine Second hand smoke exposure: Yes Alcohol intake: never Substance/Drug Use: never Adopted: No Caregiver/support person: Yes Lives independently: Yes Household members: significant other Housing: House Number of children: 2 Number of grandchildren: 4 Highest education level completed: 7th Grade service: Yes status: Discharged branch: [employer] Current occupational exposures/hazards: No Pets and animals: Yes Sexually active: Yes Do you think of yourself as: Straight/Heterosexual Current gender identity: Male Special shaun needs: No Agree to transfusion: Yes Physical Exam Narrative: EXAM NARRATIVE: General: Alert, no acute distress. Skin: Warm, dry. Head: Normocephalic, atraumatic. Neck: Supple, trachea midline. Eye: Extraocular movements are intact. Ears, nose, mouth and throat: mucosa moist. Cardiovascular: Regular, Normal peripheral perfusion. 1+ tibial edema Respiratory: Lungs are clear to auscultation, respirations are non-labored, breath sounds are equal, Symmetrical chest wall expansion. Gastrointestinal: Soft, Nontender, Non distended Musculoskeletal: Patient has pain in his left shoulder. He has swelling and bruising down his entire arm. His hand is particularly edematous. This is on the left side. Neurological: Alert and oriented, No focal neurological deficit observed. Psychiatric: Cooperative, appropriate mood & affect. Course Vital Signs: Vital signs: Vital Signs Temperature 98.2 F 06/03/24 11:45 Pulse Rate 77 06/03/24 14:30 Respiratory Rate 16 06/03/24 13:02 Blood Pressure 147/63 06/03/24 14:30 Pulse Oximetry 95 06/03/24 14:30 Oxygen Delivery Me thod Room Air 06/03/24 14:30 MDM - Weakness Medical Decision Making Medical decision making: Differential diagnosis for patient presenting with generalized weakness including but not limited to and based on the above HPI, review of systems and physical exam: Sepsis. Dehydration. Renal failure. Electrolyte abnormalities. Anemia. Congestive heart failure. Hypotension. Coronary syndrome. Hepatitis. Cirrhosis. Infections such as pneumonia, urinary tract infection, Tick bourne illness, Cellulitis, Viral infections including influenza and Covid-19. Workup: labwork and lab/exam driven imaging ordered to evaluate, rule in and rule out above pathologies. EKG: Time 1237. Rate 78. Normal sinus rhythm, No ST-T changes, no ectopy, normal GA & QRS intervals, This was reviewed and interpreted by myself the ER physician at 1240 X-ray of the left shoulder: Stable fracture of the proximal humerus. This was reviewed and interpreted by myself the emergency room physician. I also reviewed the radiology report. Lab Review: Laboratory results were reviewed and interpreted by myself the emergency room physician. No leukocytosis. Anemia slightly worse than previously. However his blood pressure is okay. I do not believe he needs transfusion today. Mean and creatinine are stable and slightly elevated. Chest x-ray: No acute process. No infiltrate. No pneumothorax. This was reviewed and interpreted by myself the emergency room physician. I also reviewed the radiology report. I reviewed the patient's medical record. Consultation: I spoke with Dr. Alejandro who is on-call for orthopedics. He recommends compression stocking and sling Reexamination: Patient has remained stable. No hypotension. No altered mental status. We discussed that he was not supposed to take his sling off. I am thinking that maybe they misunderstood the follow-up with Ortho as when the takeoff the sling. Either way he still has good alignment of the shoulder. And we will place compression and put him back in a sling. I discussed all this with the patient. Assessment and plan: Proximal humerus fracture Dependent edema - Discharged home - Discussed plan with patient. Answered any questions. - Evaluation and treatment of this problem were appropriate in the emergency setting. Lab Data 06/03/24 12:21 06/03/24 12:21 Radiology Impressions Chest X-Ray 06/03/24 12:02 IMPRESSION: Mild cardiomegaly and central venous congestion without definite pulmonary edema or other acute abnormality. Acute/subacute fracture of the left humerus as above. Humerus X-Ray 06/03/24 12:38 IMPRESSION: Proximal left humeral fracture as above. Forearm X-Ray 06/03/24 12:48 IMPRESSION: No acute abnormality. Laboratory Results WBC 3.09 10^3/uL (3.29-11.43) L 06/03/24 12:21 RBC 2.54 10^6/uL (3.85-5.65) L 06/03/24 12:21 Hgb 7.80 g/dL (11.27-16.99) L 06/03/24 12:21 Hct 24.8 % (37-53) L 06/03/24 12:21 MCV 97.6 fl (82-101) 06/03/24 12:21 MCH 30.7 pg (27-33) 06/03/24 12:21 MCHC 31.5 g/dL (30-55) 06/03/24 12:21 RDW 19.5 % (12.1-15.1) H 06/03/24 12:21 Plt Count 57 10^3/cmm (157-399) L 06/03/24 12:21 MPV Not Reportable 06/03/24 12:21 Neut % (Auto) 75.4 % 06/03/24 12:21 Lymph % (Auto) 13.3 % 06/03/24 12:21 [place] % (Auto) 10.4 % 06/03/24 12:21 Eos % (Auto) 0.3 % 06/03/24 12:21 Baso % (Auto) 0.3 % 06/03/24 12:21 Neut # (Auto) 2.33 10^3/uL (1.8-7.7) 06/03/24 12:21 Lymph # (Auto) 0.4 10^3/uL (0.8-4.8) L 06/03/24 12:21 [place] # (Auto) 0.3 10^3/uL (0.2-0.9) 06/03/24 12:21 Eos # (Auto) 0.0 10^3/uL (0.0-0.8) 06/03/24 12:21 Baso # (Auto) 0.0 10^3/uL (0.0-0.1) 06/03/24 12:21 Nucleated RBC % (auto) 0 % 06/03/24 12:21 Nucleated RBCs # 0.0 /100WBC 06/03/24 12:21 Sodium 140 mmol/L (136-145) 06/03/24 12:21 Potassium 3.9 mmol/L (3.5-5.1) 06/03/24 12:21 Chloride 104 mmol/L (98-107) 06/03/24 12:21 Carbon Dioxide 22 mmol/L (22-29) 06/03/24 12:21 Anion Gap 17.9 (5-19) 06/03/24 12:21 BUN 20 mg/dL (8-23) 06/03/24 12:21 Creatinine 1.3 mg/dL (0.7-1.2) H 06/03/24 12:21 GFR Calculation Not Reportable 06/03/24 12:21 Glucose 104 mg/dL (65-115) 06/03/24 12:21 Calculated Osmolality 293 mOsm/kg (285-295) 06/03/24 12:21 Lactic Acid 1.8 mmol/L (0.5-2.2) 06/03/24 12:21 Calcium 8.2 mg/dL (8.5-10.5) L 06/03/24 12:21 Total Bilirubin 1.5 mg/dL (0.15-1.2) H 06/03/24 12:21 AST 46 U/L (0-40) H 06/03/24 12:21 ALT 31 U/L (0-41) 06/03/24 12:21 Alkaline Phosphatase 154 U/L (40-130) H 06/03/24 12:21 Ammonia 18 umol/L (16-60) 06/03/24 14:03 Troponin T Baseline 32 ng/L (0-15) H 06/03/24 12:21 Troponin T 120 Minute 28.55 ng/L (0-15) H 06/03/24 14:03 Delta Troponin T -3.45 ABS# (0-10) L 06/03/24 14:03 C-Reactive Protein 22.0 mg/L (0.0-4.9) H 06/03/24 12:21 NT-Pro-B Natriuret Pep 438 pg/mL (0-450) 06/03/24 12:21 Total Protein 5.7 g/dL (6.6-8.7) L 06/03/24 12:21 Albumin 3.5 g/dL (3.5-5.2) 06/03/24 12:21 Globulin 2.2 g/dL (1.3-4.6) 06/03/24 12:21 Urine Color Yellow (Yellow) 06/03/24 13:38 Urine Appearance Cloudy (CLEAR) A 06/03/24 13:38 Urine pH 5.5 (5-7) 06/03/24 13:38 Ur Specific Casey 1.019 (1.005-1.030) 06/03/24 13:38 Urine Protein Negative (Negative) 06/03/24 13:38 Urine Glucose (UA) Negative (Normal) 06/03/24 13:38 Urine Ketones Trace (Negative) 06/03/24 13:38 Urine Blood Negative (Negative) 06/03/24 13:38 Urine Nitrate Negative (Negative) 06/03/24 13:38 Urine Bilirubin Negative (Negative) 06/03/24 13:38 Urine Urobilinogen 1.0 mg/dL (Negative) 06/03/24 13:38 Ur Leukocyte Esterase Negative (Negative) 06/03/24 13:38 Urine RBC 0-2 /hpf (0-2) 06/03/24 13:38 Urine WBC 0-5 /hpf (0-5) 06/03/24 13:38 Ur Squamous Epith Cells 0-5 /hpf (0-5) 06/03/24 13:38 Amorphous Sediment Not Reportable 06/03/24 13:38 Urine Bacteria None seen /hpf (NONE) 06/03/24 13:38 Hyaline Casts 13.63 /lpf 06/03/24 13:38 Adenovirus (PCR) Not detected (NOT DETECT) 06/03/24 13:00 C. pneumoniae DNA (PCR) Not detected (NOT DETECT) 06/03/24 13:00 Coronavirus 229E (PCR) Not detected (NOT DETECT) 06/03/24 13:00 Human Metapneumovir PCR Not detected (NOT DETECT) 06/03/24 13:00 Influenza A (H1) PCR Not detected (NOT DETECT) 06/03/24 13:00 Influ A (H1/09) PCR Not detected (NOT DETECT) 06/03/24 13:00 Influenza A (H3) PCR Not detected (NOT DETECT) 06/03/24 13:00 Influenza Type A (PCR) Not detected (NOT DETECT) 06/03/24 13:00 Influenza Type B (PCR) Not detected (NOT DETECT) 06/03/24 13:00 M. pneumoniae (PCR) Not detected (NOT DETECT) 06/03/24 13:00 Parainfluenza 1 (PCR) Not detected (NOT DETECT) 06/03/24 13:00 Parainfluenza 2 (PCR) Not detected (NOT DETECT) 06/03/24 13:00 Parainfluenza 3 (PCR) Not detected (NOT DETECT) 06/03/24 13:00 Parainfluenza 4 (PCR) Not detected (NOT DETECT) 06/03/24 13:00 RSV Type A (PCR) Not detected (NOT DETECT) 06/03/24 13:00 RSV Type B (PCR) Not detected (NOT DETECT) 06/03/24 13:00 Entero/Rhino (PCR) Not detected (NOT DETECT) 06/03/24 13:00 SARS-CoV-2 (PCR) Not detected (NOT DETECT) 06/03/24 13:00 All radiology interpretation(s) finalized by discharge Discharge Plan Discharge Patient Disposition: Home Clinical Impression: Proximal humerus fracture, Anemia, Multiple falls Condition: Stable Prescriptions: No Action pregabalin 150 mg capsule 150 mg PO BID methocarbamol 750 mg tablet 750 mg PO TID hydrochlorothiazide 25 mg tablet 25 mg PO DAILY amlodipine 2.5 mg tablet 2.5 mg PO DAILY pravastatin 40 mg tablet 40 mg PO DAILY allopurinol 100 mg tablet 100 mg PO DAILY omeprazole magnesium [Acid Maintenance Department Technician (omeprazole)] 20 mg capsule,delayed release(DR/EC) 20 mg PO BID tamsulosin 0.4 mg capsule 0.4 mg PO DAILY Spiriva Respimat 2.5 mcg/actuation mist 2 puff inhalation DAILY ascorbate calcium (vitamin C) 500 mg tablet 500 mg PO DAILY loratadine [Allergy Relief (loratadine)] 10 mg tablet 10 mg PO DAILY zinc gluconate 50 mg tablet 50 mg PO DAILY fluticasone propionate [Flonase Allergy Relief] 50 mcg/actuation spray,suspension 1 spray intranasal DAILY Rx Instructions: administer into each nostril fluticasone propion-salmeterol 100-50 mcg/dose blister with device 1 inh inhalation BID lisinopril 5 mg tablet 7.5 mg PO DAILY cholecalciferol (vitamin D3) 25 mcg (1,000 unit) capsule 25 mcg PO DAILY calcium citrate-vitamin D3 315 mg-5 mcg (200 unit) tablet 1 tab PO DAILY guaifenesin 200 mg tablet 200 mg PO DAILY PRN (Reason: Congestion) ferrous gluconate 324 mg (38 mg iron) tablet 648 mg PO DAILY 30 Days Qty: 60 0RF (DME) orthapedic shoes See Rx Instructions .Route .MEDSUPPLY Qty: 1 0RF Rx Instructions: As directed to the shoe yossi triamcinolone acetonide 0.1 % ointment 1 applic topical BID Qty: 30 0RF azithromycin [Zithromax] 500 mg tablet 500 mg PO DAILY 5 Days Qty: 5 0RF hydrocodone-acetaminophen 5-325 mg tablet 1 tab PO Q6H PRN (Reason: pain) Qty: 14 0RF Discharge Orders: Discharge ED (Routine); Ordered 06/03/24 Ordered By: Keely Sewell Referrals: Rocio Enriquez MD [Primary Care Provider] - Srikanth Alejandro DO [Physician] - 4-7 days (Please call for a follow-up appointment with orthopedics with Dr. Alejandro) Discharge Diet: Usual diet Discharge Activity: Limit activity as instructed Patient Instructions: Opioid Safety, Pain Management Activity Restrictions/Additional Instructions: Please keep sling on left arm and keep it immobilized. Also keep a compression stocking on your arm as well to help reduce swelling. Thank you for choosing [facility] for your healthcare needs today. Please realize this is an emergency room and that we are providing you with a medical screening exam and this may not be complete and all inclusive of all the testing and or work up that you may need to determine your ailment or severity of your illness. You have been screened and evaluated and felt safe for discharge. Health conditions do change or evolve sometimes and as such it is important that you follow up with your Primary Doctor to be re checked, 3-5 days is a general good time frame for follow up. You are always welcome to return to the ED for re assessment if your symptoms are worsening or you have new concerns Coding Level of Care Code ED Aircraft Sales Representative for Chg Fwd Related Data Home Medications Medication Instructions Recorded Confirmed allopurinol 100 mg tablet 100 mg PO DAILY 02/27/22 06/03/24 amlodipine 2.5 mg tablet 2.5 mg PO DAILY 02/27/22 06/03/24 ascorbate calcium (vitamin C) 500 500 mg PO DAILY 02/27/22 06/03/24 mg tablet fluticasone 100 mcg-salmeterol 50 1 inh inhalation BID 02/27/22 06/03/24 mcg/dose blistr powdr for inhalation fluticasone propionate 50 1 spray intranasal DAILY 02/27/22 06/03/24 mcg/actuation nasal spray,suspension (Flonase Allergy Relief) hydrochlorothiazide 25 mg tablet 25 mg PO DAILY 02/27/22 06/03/24 loratadine 10 mg tablet (Allergy 10 mg PO DAILY 02/27/22 06/03/24 Relief (loratadine)) methocarbamol 750 mg tablet 750 mg PO TID 02/27/22 06/03/24 omeprazole magnesium 20 mg 20 mg PO BID 02/27/22 06/03/24 capsule,delayed release (Acid Maintenance Department Technician (omeprazole)) pravastatin 40 mg tablet 40 mg PO DAILY 02/27/22 06/03/24 pregabalin 150 mg capsule 150 mg PO BID 02/27/22 06/03/24 tamsulosin 0.4 mg capsule 0.4 mg PO DAILY 02/27/22 06/03/24 tiotropium bromide 2.5 2 puff inhalation DAILY 02/27/22 06/03/24 mcg/actuation mist for inhalation (Spiriva Respimat) zinc gluconate 50 mg tablet 50 mg PO DAILY 02/27/22 06/03/24 calcium 315 mg (as 1 tab PO DAILY 03/20/22 06/03/24 citrate)-vitamin D3 5 mcg (200 unit) tablet cholecalciferol (vitamin D3) 25 25 mcg PO DAILY 03/20/22 06/03/24 mcg (1,000 unit) capsule guaifenesin 200 mg tablet 200 mg PO DAILY PRN Congestion 03/20/22 06/03/24 lisinopril 5 mg tablet 7.5 mg PO DAILY 03/20/22 06/03/24 Previous Rx's Medication Instructions Recorded ferrous gluconate 324 mg (38 mg 648 mg (2 x 324 mg (38 mg iron)) 03/20/22 iron) tablet PO DAILY 30 days #60 tabs orthapedic shoes #1 ea 07/29/23 triamcinolone acetonide 0.1 % 1 applic topical BID #30 grams 01/12/24 topical ointment azithromycin 500 mg tablet 500 mg PO DAILY 5 days #5 tabs 02/12/24 (Zithromax) hydrocodone 5 mg-acetaminophen 325 1 tab PO Q6H PRN pain #14 tabs 05/28/24 mg tablet Allergies Allergy/AdvReac Type Severity Reaction Status Date / Time Penicillins Allergy ALGY-Hives Verified 02/12/24 15:47 Sulfa (Sulfonamide Allergy ALGY-Hives Verified 02/12/24 15:47 Antibiotics)
[2024-06-03 13:02] VITALS: BP 146/64; PULSE 80; RESP 16; O2SAT 96
[2024-06-03 13:27] LABS: Basophils % 0.3 %; Eosinophils % 0.3 %; Hematocrit 24.8 % (37-53); Lymphocytes # 0.4 10^3/uL (0.8-4.8); Lymphocytes % 13.3 %; Mean Corpuscular HGB Conc 31.5 g/dL (30-55); Mean Corpuscular Hemoglobin 30.7 pg (27-33); Mean Corpuscular Volume 97.6 fl (82-101); Monocytes # 0.3 10^3/uL (0.2-0.9); Monocytes % 10.4 %; Neutrophils # 2.33 10^3/uL (1.8-7.7); Neutrophils % 75.4 %; Nucleated Red Blood Cells % 0 %; Platelet Count 57 10^3/cmm (157-399); Red Blood Count 2.54 10^6/uL (3.85-5.65); Red Cell Distribution Width 19.5 % (12.1-15.1); White Blood Count 3.09 10^3/uL (3.29-11.43)
[2024-06-03 13:41] LABS: Lactic Sepsis W/Reflex 1.8 mmol/L (0.5-2.2)
[2024-06-03 13:43] LABS: Troponin(5th) Baseline 32 ng/L (0-15)
[2024-06-03 13:48] LABS: Bilirubin Urine Negative (Negative); Blood Urine Negative (Negative); Glucose Urine UA Negative (Normal); Ketones Urine Trace (Negative); Leukocyte Esterase Urine Negative (Negative); Nitrate Urine Negative (Negative); Protein Urine Negative (Negative); Specific Gravity, Urine 1.019 (1.005-1.030); Urine Appearance Cloudy (CLEAR); Urine Color Yellow (Yellow); pH Urine 5.5 (5-7)
[2024-06-03 13:51] LABS: Bacteria Urine None Seen /hpf; Hyaline Casts Urine 13.63 /lpf; RBC Urine 0-2 /hpf (0-2); Squamous Epithelial Cell Urine 0-5 /hpf (0-5); WBC Urine 0-5 /hpf (0-5)
[2024-06-03 14:02] LABS: Alanine Aminotransferase 31 U/L (0-41); Albumin Level 3.5 g/dL (3.5-5.2); Alkaline Phosphatase 154 U/L (40-130); Anion Gap 17.9 (5-19); Aspartate Amino Transferase 46 U/L (0-40); Blood Urea Nitrogen 20 mg/dL (8-23); Calcium 8.2 mg/dL (8.5-10.5); Carbon Dioxide 22 mmol/L (22-29); Chloride 104 mmol/L (98-107); Creatinine Clr Calc Pharmacy 45.6653; Globulin 2.2 g/dL (1.3-4.6); Glucose 104 mg/dL (65-115); NT Pro B Type Natriuretic Pept 438 pg/mL (0-450); Osmolality Calculated 293 mOsm/kg (285-295); Potassium 3.9 mmol/L (3.5-5.1); Sodium 140 mmol/L (136-145); Total Bilirubin 1.5 mg/dL (0.15-1.2); Total Protein 5.7 g/dL (6.6-8.7)
[2024-06-03 14:24] LABS: UA Slide Review UA Slide Review Perf
--- NOTE | 2024-06-03 14:24 | ECG_ITS ---
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
[2024-06-03 14:30] VITALS: BP 147/63; PULSE 77; O2SAT 95
--- NOTE | 2024-06-03 14:30 | PC.PHAR ---
[facility] . Patient does have Medications with him . Patient states he thinks he took all medications on 06/02/2024.
[2024-06-03 14:44] LABS: Troponin 5 2HR 28.55 ng/L (0-15); Troponin 5 2HR Delta -3.45 ABS# (0-10)
[2024-06-03 14:45] LABS: Ammonia 18 umol/L (16-60)
[2024-06-03 15:04] LABS: Adenovirus Not Detected (NOT DETECT); Chlamydia Pneumoniae Not Detected (NOT DETECT); Coronavirus 229E,HKU1,NL63,OC4 Not Detected (NOT DETECT); Human Metapneumovirus Not Detected (NOT DETECT); Human Rhinovirus/Enterovirus Not Detected (NOT DETECT); Influenza A Not Detected (NOT DETECT); Influenza A H1 Not Detected (NOT DETECT); Influenza A H1-2009 Not Detected (NOT DETECT); Influenza A H3 Not Detected (NOT DETECT); Influenza B Not Detected (NOT DETECT); Mycoplasma Pneumoniae Not Detected (NOT DETECT); Parainfluenza Virus Type 1 Not Detected (NOT DETECT); Parainfluenza Virus Type 2 Not Detected (NOT DETECT); Parainfluenza Virus Type 3 Not Detected (NOT DETECT); Parainfluenza Virus Type 4 Not Detected (NOT DETECT); Respiratory Syncytial Virus A Not Detected (NOT DETECT); Respiratory Syncytial Virus B Not Detected (NOT DETECT); SARS-COV-2 Not Detected (NOT DETECT)
[2024-06-03 15:30] VITALS: BP 141/87; PULSE 73; O2SAT 98
== END 2024-06-03 15:31 | disposition home or self-care (01) ==
PROVIDERS: Emergency Provider Emergency Medicine; PCP Family Medicine
DX: S42.202A Unspecified fracture of upper end of left humerus, initial encounter for closed fracture (principal); W19.XXXA Unspecified fall, initial encounter; D64.9 Anemia, unspecified; Z11.52 Encounter for screening for COVID-19; Z87.891 Personal history of nicotine dependence
CPT/HCPCS: 36415; 71045; 73060; 73090; 80053; 81001; 82140; 83605; 83880; 84484; 85025; 86140; 87040; 87486; 87581; 87633; 93005; 99285

== ENCOUNTER 2024-06-21 13:32 | Emergency (ER) | payer OTHER, MEDICARE, SELFPAY ==
[2024-06-21 13:38] VITALS: BP 144/57; PULSE 79; TEMP 36.7; O2SAT 98; BMI 24.3
--- NOTE | 2024-06-21 15:58 | W.ED.EXTPRO ---
HPI - Extremity Problem General: Chief complaint: Wound/Laceration Stated complaint: wound dressing needs changed Time Seen by Provider: 06/21/24 15:36 Source: patient and family Mode of arrival: ambulatory Limitations: no limitations History of Present Illness: Patient is a 79-year-old male who presents to ED today for evaluation of a left hand wound that has developed following a dressing that was too tight or has rubbed area. Patient was initially seen here on 05/28 following a fall where he was diagnosed with a left humeral fracture. He was given orthopedic follow-up. Follow-up is currently scheduled for 06/28. Patient returned to our emergency department a week following his initial injury on 06/03 due to swelling to the left arm and ecchymosis. ER provider had spoken to Dr. Alejandro who had recommended compression sleeve to the extremity. Patient states he has been wearing this but also had some type of wrap to his left hand that went in between the webbing of the left thumb and index fingers. He states this dressing has chafed and rubbed the area raw and now has an open wound here. He feels like the swelling and bruising to the arm has not changed. He is not having any numbness, tingling, loss of sensation. He has not noticed any redness/warmth or coolness/pallor to the arm or hand. MD Complaint: other (sore/wound involving L hand) Onset (ago): day(s) Pain Consistency: constant Location: left and upper extremity Radiation: none Relieving factors: nothing Exacerbating factors: nothing Associated symptoms: Reports no associated symptoms; Deny chest pain or fever(s) Related Data Home Medications ?Medication ?Instructions ?Recorded ?Confirmed allopurinol 100 mg tablet 100 mg PO DAILY 02/27/22 06/03/24 amlodipine 2.5 mg tablet 2.5 mg PO DAILY 02/27/22 06/03/24 ascorbate calcium (vitamin C) 500 500 mg PO DAILY 02/27/22 06/03/24 mg tablet fluticasone 100 mcg-salmeterol 50 1 inh inhalation BID 02/27/22 06/03/24 mcg/dose blistr powdr for inhalation fluticasone propionate 50 1 spray intranasal DAILY 02/27/22 06/03/24 mcg/actuation nasal spray,suspension (Flonase Allergy Relief) hydrochlorothiazide 25 mg tablet 25 mg PO DAILY 02/27/22 06/03/24 loratadine 10 mg tablet (Allergy 10 mg PO DAILY 02/27/22 06/03/24 Relief (loratadine)) methocarbamol 750 mg tablet 750 mg PO TID 02/27/22 06/03/24 omeprazole magnesium 20 mg 20 mg PO BID 02/27/22 06/03/24 capsule,delayed release (Acid Reefer Engineer (omeprazole)) pravastatin 40 mg tablet 40 mg PO DAILY 02/27/22 06/03/24 pregabalin 150 mg capsule 150 mg PO BID 02/27/22 06/03/24 tamsulosin 0.4 mg capsule 0.4 mg PO DAILY 02/27/22 06/03/24 tiotropium bromide 2.5 2 puff inhalation DAILY 02/27/22 06/03/24 mcg/actuation mist for inhalation (Spiriva Respimat) zinc gluconate 50 mg tablet 50 mg PO DAILY 02/27/22 06/03/24 calcium 315 mg (as 1 tab PO DAILY 03/20/22 06/03/24 citrate)-vitamin D3 5 mcg (200 unit) tablet cholecalciferol (vitamin D3) 25 25 mcg PO DAILY 03/20/22 06/03/24 mcg (1,000 unit) capsule guaifenesin 200 mg tablet 200 mg PO DAILY PRN Congestion 03/20/22 06/03/24 lisinopril 5 mg tablet 7.5 mg PO DAILY 03/20/22 06/03/24 Previous Rx's ?Medication ?Instructions ?Recorded ferrous gluconate 324 mg (38 mg 648 mg (2 x 324 mg (38 mg iron)) 03/20/22 iron) tablet PO DAILY 30 days #60 tabs orthapedic shoes #1 ea 07/29/23 triamcinolone acetonide 0.1 % 1 applic topical BID #30 grams 01/12/24 topical ointment azithromycin 500 mg tablet 500 mg PO DAILY 5 days #5 tabs 02/12/24 (Zithromax) hydrocodone 5 mg-acetaminophen 325 1 tab PO Q6H PRN pain #14 tabs 05/28/24 mg tablet cephalexin 500 mg capsule 500 mg PO Q6H 7 days #28 caps 06/21/24 Allergies Allergy/AdvReac Type Severity Reaction Status Date / Time Penicillins Allergy ALGY-Hives Verified 06/21/24 13:47 Sulfa (Sulfonamide Allergy ALGY-Hives Verified 06/21/24 13:47 Antibiotics) Review of Systems Const: Denies: fever(s) Card: Denies: chest pain Resp: Denies: dyspnea Musc: Reports: extremity pain, extremity swelling and joint pain (L shoulder-known fracture); Denies: neck pain, joint redness or joint warmth Skin/Breast: Reports: other (ecchymosis throughout L UE) Neuro: Denies: numbness in extremities, weakness in extremities or sensory changes PFSH ED PFSH: Medical History Pancytopenia Family History Mother COPD with acute exacerbation Sister COPD with acute exacerbation Other Cancer Social History Smoking and tobacco/nicotine status: former use of tobacco/nicotine Second hand smoke exposure: Yes Alcohol intake: never Substance/Drug Use: never Adopted: No Caregiver/support person: Yes Lives independently: Yes Household members: significant other Housing: House Number of children: 2 Number of grandchildren: 4 Highest education level completed: 7th Grade service: Yes status: Discharged branch: [employer] Current occupational exposures/hazards: No Pets and animals: Yes Sexually active: Yes Do you think of yourself as: Straight/Heterosexual Current gender identity: Male Special shaun needs: No Agree to transfusion: Yes Physical Exam Const: COMMON NORMALS: no acute distress, no limitations, alert and well nourished GENERAL APPEARANCE: cooperative HENMT: COMMON NORMALS: normocephalic and atraumatic HEAD & SCALP: normal to inspection, normocephalic and atraumatic Neck/C-Spine: COMMON NORMALS: full ROM GENERAL: Yes normal visual inspection CERVICAL SPINE: No Cervical spine tenderness Resp: COMMON NORMALS: normal respiratory effort and clear to auscultation bilaterally AUSCULTATION: clear to auscultation bilaterally Cardio: COMMON NORMALS: regular rate and regular rhythm RATE: regular rate RHYTHM: regular rhythm Extremity: COMMON NORMALS: capillary refill normal GENERAL: Yes normal exam except as noted OTHER: L UE in sling due to known proximal humeral fracture; he has mild edema to the left arm most likely from known trauma; he has gravitating ecchymosis down into arm/hand; wound to webbing of 1-2 digits from a bandage that was present and cut off at today's visit-mild non-odorous serosanguineous drainage, mild erythema; no significant tenderness; no streaking; he has normal sensation and normal cap refill present; Neuro: COMMON NORMALS: moves all extremities, no focal motor deficits and no sensory deficits noted SENSORIUM/ORIENTATION: Yes alert Skin: NARRATIVE SKIN EXAM: see above Course Vital Signs: Vital signs: Vital Signs Temperature 98.1 F 06/21/24 13:38 Pulse Rate 79 06/21/24 13:38 Blood Pressure 144/57 06/21/24 13:38 Pulse Oximetry 98 06/21/24 13:38 Oxygen Delivery Me thod Room Air 06/21/24 13:38 MDM - Extremity (Nontraumatic) Medical Decision Making Patient is a 79-year-old male here for a wound to the webbing of his left thumb and index finger after a dressing had been chafing into it over the past several weeks. Dressing was removed here. At this time area does not seem to be acutely infected although early infection is possible. He will be placed on antibiotics. Wound will have to close by secondary intent. At this time there is no life-threatening or emergent etiology such as a compartment syndrome, nerve or vascular compromise, abscess collection, infectious tenosynovitis, DVT, etc. XR personal interpretation unremarkable. He has follow up with [facility] ortho next week. Advised to stay in sling until then. Medical Records I reviewed the patient's medical records. XR interpretation done by ED provider, pending radiology final review Discharge Plan Discharge Patient Disposition: Home Clinical Impression: Open wound of left hand Qualifiers: Encounter type: initial encounter Open wound type: unspecified Foreign body presence: without foreign body Qualified Code(s): S61.402A - Unspecified open wound of left hand, initial encounter Condition: Stable Prescriptions: New cephalexin 500 mg capsule 500 mg PO Q6H 7 Days Qty: 28 0RF No Action pregabalin 150 mg capsule 150 mg PO BID methocarbamol 750 mg tablet 750 mg PO TID hydrochlorothiazide 25 mg tablet 25 mg PO DAILY amlodipine 2.5 mg tablet 2.5 mg PO DAILY pravastatin 40 mg tablet 40 mg PO DAILY allopurinol 100 mg tablet 100 mg PO DAILY omeprazole magnesium [Acid Reefer Engineer (omeprazole)] 20 mg capsule,delayed release(DR/EC) 20 mg PO BID tamsulosin 0.4 mg capsule 0.4 mg PO DAILY Spiriva Respimat 2.5 mcg/actuation mist 2 puff inhalation DAILY ascorbate calcium (vitamin C) 500 mg tablet 500 mg PO DAILY loratadine [Allergy Relief (loratadine)] 10 mg tablet 10 mg PO DAILY zinc gluconate 50 mg tablet 50 mg PO DAILY fluticasone propionate [Flonase Allergy Relief] 50 mcg/actuation spray,suspension 1 spray intranasal DAILY Rx Instructions: administer into each nostril fluticasone propion-salmeterol 100-50 mcg/dose blister with device 1 inh inhalation BID lisinopril 5 mg tablet 7.5 mg PO DAILY cholecalciferol (vitamin D3) 25 mcg (1,000 unit) capsule 25 mcg PO DAILY calcium citrate-vitamin D3 315 mg-5 mcg (200 unit) tablet 1 tab PO DAILY guaifenesin 200 mg tablet 200 mg PO DAILY PRN (Reason: Congestion) ferrous gluconate 324 mg (38 mg iron) tablet 648 mg PO DAILY 30 Days Qty: 60 0RF (DME) orthapedic shoes See Rx Instructions .Route .MEDSUPPLY Qty: 1 0RF Rx Instructions: As directed to the shoe elenayuriy triamcinolone acetonide 0.1 % ointment 1 applic topical BID Qty: 30 0RF azithromycin [Zithromax] 500 mg tablet 500 mg PO DAILY 5 Days Qty: 5 0RF hydrocodone-acetaminophen 5-325 mg tablet 1 tab PO Q6H PRN (Reason: pain) Qty: 14 0RF Discharge Orders: Discharge ED (Routine); Ordered 06/21/24 Ordered By: Bharti Rios Referrals: Rocio Enriquez MD [Primary Care Provider] - Activity Restrictions/Additional Instructions: Keep wound clean with warm soap and water multiple times a day. Start your antibiotics immediately. These have been called in to the pharmacy that was listed on file. Monitor for signs of infection such as redness, worsening swelling, red streaking up your hand or arm, fevers, or any other concerns you may have. Please seek medical re-evaluation if these occur. You currently have an appointment to see orthopedics regarding your left shoulder fracture on 06/28 at 3:30. Print Language: Greek Coding Level of Care Code ED Physicians Assistant for Seth Hermosillo
--- NOTE | 2024-06-21 16:13 | XRR_ITS ---
PROCEDURE INFORMATION: Exam: XR Left Hand Exam date and time: 06/21/2024 4:30 PM Age: 79 years old Clinical indication: Swelling; Hand; Left; Additional info: Swelling/wound at base of thumb TECHNIQUE: Imaging protocol: Radiologic exam of the left hand. Views: 3 or more views. COMPARISON: CR XR forearm LT 2V [id number] 06/03/2024 1:07 PM FINDINGS: Bones/joints: No acute fracture or dislocation. Mild degenerative changes of the 1st carpometacarpal joint. Moderate degenerative changes of multiple interphalangeal joints, more so of the distal interphalangeal joints. Soft tissues: Mild soft tissue swelling of the base thumb and 2nd digit. XR/XR hand LT min 3V* [id number] IMPRESSION: 1. No acute osseous findings. 2. Polyarticular degenerative changes. 3. Soft tissue swelling along the thenar eminence.
[2024-06-21 16:52] VITALS: BP 132/58; PULSE 74; O2SAT 99
== END 2024-06-21 16:55 | disposition home or self-care (01) ==
PROVIDERS: Emergency Provider Physician Assistant; PCP Family Medicine
DX: S61.402A Unspecified open wound of left hand, initial encounter (principal); Z87.891 Personal history of nicotine dependence; X58.XXXA Exposure to other specified factors, initial encounter
CPT/HCPCS: 73130; 99283

== ENCOUNTER → 2024-06-28 15:40 | Outpatient (BNVA) | payer OTHER, MEDICARE, SELFPAY | PROVIDERS: PCP Family Medicine; Visit Provider Orthopaedic Surgery | DX: S42.212A Unspecified displaced fracture of surgical neck of left humerus, initial encounter for closed fracture (principal); X58.XXXA Exposure to other specified factors, initial encounter | CPT/HCPCS: 73060; 99203 ==

== ENCOUNTER 2024-09-22 02:43 | Emergency (ER) | payer OTHER, MEDICARE, SELFPAY ==
[2024-09-22 02:45] VITALS: BP 168/96; PULSE 85; RESP 24; TEMP 36.7; O2SAT 96; BMI 31.1
--- NOTE | 2024-09-22 02:53 | XRR_ITS ---
PROCEDURE INFORMATION: Exam: XR Chest Exam date and time: 09/22/2024 3:25 AM Age: 79 years old Clinical indication: Injury or trauma; Fall; Blunt trauma (contusions or hematomas) TECHNIQUE: Imaging protocol: Radiologic exam of the chest. Views: 1 view. COMPARISON: CR XR chest 1V portable [id number] 06/03/2024 1:07 PM FINDINGS: Lungs: Unremarkable. No consolidation. Pleural spaces: Unremarkable. No pleural effusion. No pneumothorax. Heart/Mediastinum: The heart is borderline enlarged. There is calcified plaque involving the aorta. Bones/joints: There is a healing fracture involving the proximal left humerus. XR/XR chest 1V portable [id number] IMPRESSION: 1. No acute findings.
--- NOTE | 2024-09-22 02:53 | XRR_ITS ---
PROCEDURE INFORMATION: Exam: XR Left Shoulder Exam date and time: 09/22/2024 3:20 AM Age: 79 years old Clinical indication: Injury or trauma; Fall; Blunt trauma (contusions or hematomas); Shoulder; Left TECHNIQUE: Imaging protocol: Radiologic exam of the left shoulder. Views: 2 or more views. COMPARISON: [place] [id number] 06/28/2024 3:41 PM FINDINGS: Bones/joints: There is a healing fracture involving the proximal left humerus. The fracture appears to be not significantly changed in alignment when compared to prior exam. The AC joint is intact. Bony mineralization is decreased. Soft tissues: Normal. XR/XR shoulder LT min 2V* [id number] IMPRESSION: 1. Healing fracture proximal left humerus not significantly changed in alignment when compared to prior exam. 2. Bony demineralization.
--- NOTE | 2024-09-22 02:53 | CTR_ITS ---
PROCEDURE INFORMATION: Exam: CT Cervical Spine Without Contrast Exam date and time: 09/22/2024 3:01 AM Age: 79 years old Clinical indication: Injury or trauma; Fall; Blunt trauma TECHNIQUE: Imaging protocol: Computed tomography of the cervical spine without contrast. Radiation optimization: All CT scans at this facility use at least one of these dose optimization techniques: automated exposure control; mA and/or kV adjustment per patient size (includes targeted exams where dose is matched to clinical indication); or iterative reconstruction. COMPARISON: DX XR cervical spine 3V* [id number] 02/11/2022 9:58 AM RADIATION DOSE METRICS: Total DLP (mGy-cm): 276.3 FINDINGS: Bones: No acute fracture. Normal alignment. No significant disc bulge or herniation. No severe spinal canal stenosis. No significant neural foraminal narrowing. Degenerative disc space narrowing at C3-C4 through C6-C7 and within the pre odontoid space. Lungs: Lung apices show fibrotic changes. Soft tissues: Unremarkable. CT/CT cervical spin wo con* [id number] IMPRESSION: Degenerative change in the cervical spine with no acute bony injury.
--- NOTE | 2024-09-22 02:53 | XRR_ITS ---
PROCEDURE INFORMATION: Exam: XR Pelvis Exam date and time: 09/22/2024 3:27 AM Age: 79 years old Clinical indication: Injury or trauma; Fall; Blunt trauma (contusions or hematomas); Bilateral; Pelvic region TECHNIQUE: Imaging protocol: Radiologic exam of the pelvis. Views: 1 or 2 view. COMPARISON: US renal BI* [id number] 09/13/2020 2:09 PM FINDINGS: Bones/joints: See Soft tissues finding. Soft tissues: Bones overall not well-visualized secondary to overlying soft tissue as well as bony demineralization. No definite fracture is appreciated. The visualized portion of the SI joints are normal. Symphysis pubis is normal. The femoral heads are normally located. There is mild joint space narrowing with small supra-acetabular osteophytes. No definite fractures noted involving the proximal femurs. XR/XR pelvis 1-2V* [id number] IMPRESSION: 1. Somewhat limited exam secondary to overlying soft tissue. 2. No definite fracture identified.
--- NOTE | 2024-09-22 02:53 | CTR_ITS ---
PROCEDURE INFORMATION: Exam: CT Head Without Contrast Exam date and time: 09/22/2024 3:01 AM Age: 79 years old Clinical indication: Injury or trauma; Fall; Blunt trauma (contusions or hematomas); Consciousness not specified TECHNIQUE: Imaging protocol: Computed tomography of the head without contrast. Radiation optimization: All CT scans at this facility use at least one of these dose optimization techniques: automated exposure control; mA and/or kV adjustment per patient size (includes targeted exams where dose is matched to clinical indication); or iterative reconstruction. COMPARISON: CT cervical spin wo con* [id number] 09/22/2024 3:01 AM RADIATION DOSE METRICS: Total DLP (mGy-cm): 1101.9 FINDINGS: Brain: There is generalized atrophy. Moderate periventricular white matter low densities without mass effect compatible with chronic small vessel ischemic changes. No mass effect or midline shift. No hemorrhage. Cerebral ventricles: Prominence of the ventricles and cortical sulci. Paranasal sinuses: Visualized sinuses are unremarkable. No fluid levels. Mucous retention cysts in the right maxillary sinus. Mastoid air cells: Visualized mastoid air cells show fluid on the right. Bones: Unremarkable. No acute fracture. Soft tissues: Unremarkable. Vasculature: There are vascular atherosclerotic calcifications carotid siphons. Notes: If there is further clinical concern for intracranial pathology, MRI of the brain may be performed for further assessment. CT/CT head wo con* [id number] IMPRESSION: Genralized atrophy, No acute intracranial abnormality.
[2024-09-22 03:09] LABS: Basophils % 0.2 %; Eosinophils % 0.6 %; Hematocrit 27.2 % (37-53); Lymphocytes # 0.7 10^3/uL (0.8-4.8); Lymphocytes % 14.9 %; Mean Corpuscular HGB Conc 31.6 g/dL (30-55); Mean Corpuscular Hemoglobin 31.4 pg (27-33); Mean Corpuscular Volume 99.3 fl (82-101); Mean Platelet Volume 12.7 fL (7.4-10.4); Monocytes # 0.7 10^3/uL (0.2-0.9); Monocytes % 13.6 %; Neutrophils % 70.3 %; Nucleated Red Blood Cells % 0 %; Platelet Count 75 10^3/cmm (157-399); Red Blood Count 2.74 10^6/uL (3.85-5.65); Red Cell Distribution Width 16.7 % (12.1-15.1); White Blood Count 4.84 10^3/uL (3.29-11.43)
[2024-09-22 03:20] LABS: Alanine Aminotransferase 20 U/L (0-41); Albumin Level 2.8 g/dL (3.5-5.2); Alkaline Phosphatase 180 U/L (40-130); Anion Gap 12.8 (5-19); Aspartate Amino Transferase 36 U/L (0-40); Blood Urea Nitrogen 16 mg/dL (8-23); Carbon Dioxide 25 mmol/L (22-29); Chloride 105 mmol/L (98-107); Creatine Phosphokinase 129 U/L (39-308); Creatinine Clr Calc Pharmacy 68.4044; Globulin 3.4 g/dL (1.3-4.6); Glucose 105 mg/dL (65-115); Osmolality Calculated 290 mOsm/kg (285-295); Potassium 3.8 mmol/L (3.5-5.1); Sodium 139 mmol/L (136-145); Total Bilirubin 1.1 mg/dL (0.15-1.2); Total Protein 6.2 g/dL (6.6-8.7)
[2024-09-22 04:06] LABS: Bilirubin Urine Negative (Negative); Blood Urine Negative (Negative); Glucose Urine UA Negative (Normal); Ketones Urine Negative (Negative); Leukocyte Esterase Urine Negative (Negative); Nitrate Urine Negative (Negative); Protein Urine Negative (Negative); Urine Appearance Clear (CLEAR); Urine Color Dark Yellow (Yellow); pH Urine 5.5 (5-7)
[2024-09-22] MEDS: HYDROcodone-acetaminophen 5-325 mg Tablet 1 TAB PO (04:06)
[2024-09-22 04:11] LABS: Add Urine Microscopic? YES; Bacteria Urine None Seen /hpf; Hyaline Casts Urine 2.46 /lpf; RBC Urine 0-2 /hpf (0-2); Squamous Epithelial Cell Urine 0-5 /hpf (0-5); WBC Urine 0-5 /hpf (0-5)
[2024-09-22 04:20] VITALS: BP 162/72; PULSE 90; O2SAT 97
--- NOTE | 2024-09-22 04:23 | W.ED.FALL ---
HPI - Fall General: Chief Complaint: Fall Stated Complaint: FALL Time Seen by Provider: 09/22/24 02:53 History of Present Illness: 29-year-old male who rolled out of bed to diet landing on his left side. Has pain in the left shoulder. Has a history of previous left shoulder fracture. States that he the pain has worsened and feels like a bit before. Also with complaint generalized in his pelvis as well as some generalized neck Related Data Home Medications ?Medication ?Instructions ?Recorded ?Confirmed allopurinol 100 mg tablet 100 mg PO DAILY 02/27/22 06/28/24 amlodipine 2.5 mg tablet 2.5 mg PO DAILY 02/27/22 06/28/24 ascorbate calcium (vitamin C) 500 500 mg PO DAILY 02/27/22 06/28/24 mg tablet fluticasone 100 mcg-salmeterol 50 1 inh inhalation BID 02/27/22 06/28/24 mcg/dose blistr powdr for inhalation fluticasone propionate 50 1 spray intranasal DAILY 02/27/22 06/28/24 mcg/actuation nasal spray,suspension (Flonase Allergy Relief) hydrochlorothiazide 25 mg tablet 25 mg PO DAILY 02/27/22 06/28/24 loratadine 10 mg tablet (Allergy 10 mg PO DAILY 02/27/22 06/28/24 Relief (loratadine)) methocarbamol 750 mg tablet 750 mg PO TID 02/27/22 06/28/24 omeprazole magnesium 20 mg 20 mg PO BID 02/27/22 06/28/24 capsule,delayed release (Acid Sports Anchor (omeprazole)) pravastatin 40 mg tablet 40 mg PO DAILY 02/27/22 06/28/24 pregabalin 150 mg capsule 150 mg PO BID 02/27/22 06/28/24 tamsulosin 0.4 mg capsule 0.4 mg PO DAILY 02/27/22 06/28/24 tiotropium bromide 2.5 2 puff inhalation DAILY 02/27/22 06/28/24 mcg/actuation mist for inhalation (Spiriva Respimat) zinc gluconate 50 mg tablet 50 mg PO DAILY 02/27/22 06/28/24 calcium 315 mg (as 1 tab PO DAILY 03/20/22 06/28/24 citrate)-vitamin D3 5 mcg (200 unit) tablet cholecalciferol (vitamin D3) 25 25 mcg PO DAILY 03/20/22 06/28/24 mcg (1,000 unit) capsule guaifenesin 200 mg tablet 200 mg PO DAILY PRN Congestion 03/20/22 06/28/24 lisinopril 5 mg tablet 7.5 mg PO DAILY 03/20/22 06/28/24 Previous Rx's ?Medication ?Instructions ?Recorded ferrous gluconate 324 mg (38 mg 648 mg (2 x 324 mg (38 mg iron)) 03/20/22 iron) tablet PO DAILY 30 days #60 tabs orthapedic shoes #1 ea 07/29/23 triamcinolone acetonide 0.1 % 1 applic topical BID #30 grams 01/12/24 topical ointment azithromycin 500 mg tablet 500 mg PO DAILY 5 days #5 tabs 02/12/24 (Zithromax) hydrocodone 5 mg-acetaminophen 325 1 tab PO Q6H PRN pain #14 tabs 05/28/24 mg tablet hydrocodone 5 mg-acetaminophen 325 1 tab PO Q6H #20 tabs 09/22/24 mg tablet Allergies Allergy/AdvReac Type Severity Reaction Status Date / Time Penicillins Allergy ALGY-Hives Verified 09/22/24 02:55 Sulfa (Sulfonamide Allergy ALGY-Hives Verified 09/22/24 02:55 Antibiotics) PFSH ED PFSH: Medical History Pancytopenia Family History Mother COPD with acute exacerbation Sister COPD with acute exacerbation Other Cancer Social History Smoking and tobacco/nicotine status: former use of tobacco/nicotine Second hand smoke exposure: Yes Alcohol intake: never Substance/Drug Use: never Adopted: No Caregiver/support person: Yes Lives independently: Yes Household members: significant other Housing: House Number of children: 2 Number of grandchildren: 4 Highest education level completed: 7th Grade service: Yes status: Discharged branch: [employer] Current occupational exposures/hazards: No Pets and animals: Yes Sexually active: Yes Do you think of yourself as: Straight/Heterosexual Current gender identity: Male Special shaun needs: No Agree to transfusion: Yes Physical Exam Neck/C-Spine: COMMON NORMALS: no JVD Resp: COMMON NORMALS: normal respiratory effort, No retractions, No use of accessory muscles, clear to auscultation bilaterally and percussion normal AUSCULTATION: clear to auscultation bilaterally PERCUSSION: percussion normal Cardio: COMMON NORMALS: no JVD, regular rate, regular rhythm, S1 normal heart sound present, S2 normal heart sound present, No gallops present (Cardio), No clicks present (Cardio), No murmurs present (Cardio), No rub (Cardio) and Peripheral pulses 2+ throughout RATE: regular rate RHYTHM: regular rhythm HEART SOUNDS: S1 normal heart sound present and S2 normal heart sound present PERIPHERAL PULSES: Peripheral pulses 2+ throughout GI: COMMON NORMALS: Normal to inspection, nondistended, normoactive bowel sounds present, Soft to palpation, non-tender, No hepatosplenomegaly present, no masses and no bruits PALPATION: Yes Soft to palpation and Yes No hepatosplenomegaly present Back/Pelvis: OTHER: Bilateral pelvis tenderness. No crepitus or instability noted. Extremity: OTHER: Left proximal humerus tenderness. Decreased range of motion secondary to pain. Neurovascular tact distal. Course Vital Signs: Vital signs: Vital Signs Temperature 98.1 F 09/22/24 02:45 Pulse Rate 90 09/22/24 04:20 Respiratory Rate 24 H 09/22/24 02:45 Blood Pressure 162/72 09/22/24 04:20 Pulse Oximetry 97 09/22/24 04:20 Oxygen Delivery Me thod Room Air 09/22/24 02:45 MDM - Fall Medical Decision Making Patient with fall out of bed tonight. Head and cervical spine CTs are negative. Left shoulder x-ray shows a fracture of the proximal humerus. Likely from previous fracture but cannot rule out acute fracture. Patient is tender here and decreased range of motion so placed in shoulder immobilizer and have patient follow-up with orthopedics. Pelvis x-ray and chest x-ray shows no acute disease. Lab Data 09/22/24 02:54 09/22/24 02:54 Radiology Impressions Cervical Spine CT 09/22/24 02:53 IMPRESSION: Degenerative change in the cervical spine with no acute bony injury. Chest X-Ray 09/22/24 02:53 IMPRESSION: 1. No acute findings. Head CT 09/22/24 02:53 IMPRESSION: Genralized atrophy, No acute intracranial abnormality. Pelvis X-Ray 09/22/24 02:53 IMPRESSION: 1. Somewhat limited exam secondary to overlying soft tissue. 2. No definite fracture identified. Shoulder X-Ray 09/22/24 02:53 IMPRESSION: 1. Healing fracture proximal left humerus not significantly changed in alignment when compared to prior exam. 2. Bony demineralization. Laboratory Results WBC 4.84 10^3/uL (3.29-11.43) 09/22/24 02:54 RBC 2.74 10^6/uL (3.85-5.65) L 09/22/24 02:54 Hgb 8.60 g/dL (11.27-16.99) L 09/22/24 02:54 Hct 27.2 % (37-53) L 09/22/24 02:54 MCV 99.3 fl (82-101) 09/22/24 02:54 MCH 31.4 pg (27-33) 09/22/24 02:54 MCHC 31.6 g/dL (30-55) 09/22/24 02:54 RDW 16.7 % (12.1-15.1) H 09/22/24 02:54 Plt Count 75 10^3/cmm (157-399) L 09/22/24 02:54 MPV 12.7 fL (7.4-10.4) H 09/22/24 02:54 Neut % (Auto) 70.3 % 09/22/24 02:54 Lymph % (Auto) 14.9 % 09/22/24 02:54 [place] % (Auto) 13.6 % 09/22/24 02:54 Eos % (Auto) 0.6 % 09/22/24 02:54 Baso % (Auto) 0.2 % 09/22/24 02:54 Neut # (Auto) 3.40 10^3/uL (1.8-7.7) 09/22/24 02:54 Lymph # (Auto) 0.7 10^3/uL (0.8-4.8) L 09/22/24 02:54 [place] # (Auto) 0.7 10^3/uL (0.2-0.9) 09/22/24 02:54 Eos # (Auto) 0.0 10^3/uL (0.0-0.8) 09/22/24 02:54 Baso # (Auto) 0.0 10^3/uL (0.0-0.1) 09/22/24 02:54 Nucleated RBC % (auto) 0 % 09/22/24 02:54 Nucleated RBCs # 0.0 /100WBC 09/22/24 02:54 Sodium 139 mmol/L (136-145) 09/22/24 02:54 Potassium 3.8 mmol/L (3.5-5.1) 09/22/24 02:54 Chloride 105 mmol/L (98-107) 09/22/24 02:54 Carbon Dioxide 25 mmol/L (22-29) 09/22/24 02:54 Anion Gap 12.8 (5-19) 09/22/24 02:54 BUN 16 mg/dL (8-23) 09/22/24 02:54 Creatinine 1.0 mg/dL (0.7-1.2) 09/22/24 02:54 GFR Calculation Not Reportable 09/22/24 02:54 Glucose 105 mg/dL (65-115) 09/22/24 02:54 Calculated Osmolality 290 mOsm/kg (285-295) 09/22/24 02:54 Calcium 8.0 mg/dL (8.5-10.5) L 09/22/24 02:54 Total Bilirubin 1.1 mg/dL (0.15-1.2) 09/22/24 02:54 AST 36 U/L (0-40) 09/22/24 02:54 ALT 20 U/L (0-41) 09/22/24 02:54 Alkaline Phosphatase 180 U/L (40-130) H 09/22/24 02:54 Creatine Kinase 129 U/L (39-308) 09/22/24 02:54 Total Protein 6.2 g/dL (6.6-8.7) L 09/22/24 02:54 Albumin 2.8 g/dL (3.5-5.2) L 09/22/24 02:54 Globulin 3.4 g/dL (1.3-4.6) 09/22/24 02:54 Urine Color Dark yellow (Yellow) A 09/22/24 04:01 Urine Appearance Clear (CLEAR) 09/22/24 04:01 Urine pH 5.5 (5-7) 09/22/24 04:01 Ur Specific [place] 1.020 (1.005-1.030) 09/22/24 04:01 Urine Protein Negative (Negative) 09/22/24 04:01 Urine Glucose (UA) Negative (Normal) 09/22/24 04:01 Urine Ketones Negative (Negative) 09/22/24 04:01 Urine Blood Negative (Negative) 09/22/24 04:01 Urine Nitrate Negative (Negative) 09/22/24 04:01 Urine Bilirubin Negative (Negative) 09/22/24 04:01 Urine Urobilinogen 1.0 mg/dL (Negative) 09/22/24 04:01 Ur Leukocyte Esterase Negative (Negative) 09/22/24 04:01 Urine RBC 0-2 /hpf (0-2) 09/22/24 04:01 Urine WBC 0-5 /hpf (0-5) 09/22/24 04:01 Ur Squamous Epith Cells 0-5 /hpf (0-5) 09/22/24 04:01 Amorphous Sediment Not Reportable 09/22/24 04:01 Urine Bacteria None seen /hpf (NONE) 09/22/24 04:01 Hyaline Casts 2.46 /lpf 09/22/24 04:01 All radiology interpretation(s) finalized by discharge Discharge Plan Discharge Patient Disposition: Home Clinical Impression: Closed fracture of left proximal humerus Qualifiers: Encounter type: sequela Fracture morphology: unspecified fracture morphology Qualified Code(s): S42.202S - Unspecified fracture of upper end of left humerus, sequela Condition: Stable Prescriptions: New hydrocodone-acetaminophen 5-325 mg tablet 1 tab PO Q6H Qty: 20 0RF No Action pregabalin 150 mg capsule 150 mg PO BID methocarbamol 750 mg tablet 750 mg PO TID hydrochlorothiazide 25 mg tablet 25 mg PO DAILY amlodipine 2.5 mg tablet 2.5 mg PO DAILY pravastatin 40 mg tablet 40 mg PO DAILY allopurinol 100 mg tablet 100 mg PO DAILY omeprazole magnesium [Acid Sports Anchor (omeprazole)] 20 mg capsule,delayed release(DR/EC) 20 mg PO BID tamsulosin 0.4 mg capsule 0.4 mg PO DAILY Spiriva Respimat 2.5 mcg/actuation mist 2 puff inhalation DAILY ascorbate calcium (vitamin C) 500 mg tablet 500 mg PO DAILY loratadine [Allergy Relief (loratadine)] 10 mg tablet 10 mg PO DAILY zinc gluconate 50 mg tablet 50 mg PO DAILY fluticasone propionate [Flonase Allergy Relief] 50 mcg/actuation spray,suspension 1 spray intranasal DAILY Rx Instructions: administer into each nostril fluticasone propion-salmeterol 100-50 mcg/dose blister with device 1 inh inhalation BID lisinopril 5 mg tablet 7.5 mg PO DAILY cholecalciferol (vitamin D3) 25 mcg (1,000 unit) capsule 25 mcg PO DAILY calcium citrate-vitamin D3 315 mg-5 mcg (200 unit) tablet 1 tab PO DAILY guaifenesin 200 mg tablet 200 mg PO DAILY PRN (Reason: Congestion) ferrous gluconate 324 mg (38 mg iron) tablet 648 mg PO DAILY 30 Days Qty: 60 0RF (DME) orthapedic shoes See Rx Instructions .Route .MEDSUPPLY Qty: 1 0RF Rx Instructions: As directed to the shoe yossi triamcinolone acetonide 0.1 % ointment 1 applic topical BID Qty: 30 0RF azithromycin [Zithromax] 500 mg tablet 500 mg PO DAILY 5 Days Qty: 5 0RF hydrocodone-acetaminophen 5-325 mg tablet 1 tab PO Q6H PRN (Reason: pain) Qty: 14 0RF Discharge Orders: Discharge ED (Routine); Ordered 09/22/24 Ordered By: Sumeet Montoya Referrals: Zhao Herring MD [Physician, Orthopedics] Rocio Enriquez MD [Primary Care Provider, Family Practice] Patient Instructions: Opioid Safety, Pain Management Print Language: Israeli Coding Level of Care Code ED Unit Tender for Seth Hermosillo
== END 2024-09-22 04:43 | disposition home or self-care (01) ==
PROVIDERS: Emergency Provider Emergency Medicine; PCP Family Medicine
DX: S42.202S Unspecified fracture of upper end of left humerus, sequela (principal); Z87.891 Personal history of nicotine dependence; X58.XXXS Exposure to other specified factors, sequela
CPT/HCPCS: 70450; 71045; 72125; 72170; 73030; 80053; 81001; 82550; 85025; 99284; J9999

== ENCOUNTER 2024-10-17 15:22 | Emergency (ER) | payer OTHER, MEDICARE, SELFPAY ==
--- NOTE | 2024-10-17 15:30 | XR_ITS ---
WS: [id number] XR chest 1V portable [id number] REASON FOR EXAM: dyspnea/cough FINDINGS: Patient's left hand overlies the left chest and mediastinum. Likely this is due to the fact the patient has a healing fracture of the surgical neck of the left humerus and the left forearm and hand are probably in a sling overlying the chest. The heart and the mediastinum appear to be within normal limits. There is calcified granulomatous disease bilaterally. No definite pulmonary parenchymal or pleural abnormality is identified. XR/XR chest 1V portable [id number] IMPRESSION: Left hand overlying the chest as above. No acute chest abnormality identified.
--- NOTE | 2024-10-17 15:30 | ECG_ITS ---
[facility]: [facility]24[facility]17 Pat Name: Raúl Zamudio Department: Room: Gender: Male Medical Case Manager: : 1945 Requested By: Willi Hill Order Number: [id number] Luke MD: Kristian Forrest M.D. Measurements Intervals [place] Rate: 74 P: 0 VA: 0 QRS: 4 QRSD: 94 T: 1 QT: 401 QTc: 445 Interpretive Statements ATRIAL FIBRILLATION Compared to ECG 06/03/2024 14:24:33 Sinus rhythm no longer present Electronically Signed On 10-18-2024 11:36:35 CDT by Kristian Forrest M.D. [email or web address]
[2024-10-17 15:32] VITALS: BP 151/66; PULSE 76; RESP 18; TEMP 36.7; O2SAT 97; BMI 32.5
--- NOTE | 2024-10-17 15:32 | W.ED.SOB ---
HPI - SOB/Dyspnea General: Chief Complaint: Shortness of Breath/Dyspnea Stated Complaint: SOB Time Seen by Provider: 10/17/24 15:26 History of Present Illness: HPI Narrative: 79-year-old male presents to the emergency room complaining of shortness of breath with severe abdominal distention. He relates to be-year-old former heavy drinker no recent fever sweats or chills or last several weeks his abdomen has become increasingly distended to the point was difficult for him to take a deep breath. He denies chest pain no productive cough no fever no diarrhea. He denies any known history of alcoholic liver cirrhosis. He is not on any anticoagulants. Associated symptoms: Reports abdominal pain; Deny chest pain or fever(s) Related Data Home Medications ?Medication ?Instructions ?Recorded ?Confirmed allopurinol 100 mg tablet 100 mg PO DAILY 02/27/22 06/28/24 amlodipine 2.5 mg tablet 2.5 mg PO DAILY 02/27/22 06/28/24 ascorbate calcium (vitamin C) 500 500 mg PO DAILY 02/27/22 06/28/24 mg tablet fluticasone 100 mcg-salmeterol 50 1 inh inhalation BID 02/27/22 06/28/24 mcg/dose blistr powdr for inhalation fluticasone propionate 50 1 spray intranasal DAILY 02/27/22 06/28/24 mcg/actuation nasal spray,suspension (Flonase Allergy Relief) hydrochlorothiazide 25 mg tablet 25 mg PO DAILY 02/27/22 06/28/24 loratadine 10 mg tablet (Allergy 10 mg PO DAILY 02/27/22 06/28/24 Relief (loratadine)) methocarbamol 750 mg tablet 750 mg PO TID 02/27/22 06/28/24 omeprazole magnesium 20 mg 20 mg PO BID 02/27/22 06/28/24 capsule,delayed release (Acid Offset Printer (omeprazole)) pravastatin 40 mg tablet 40 mg PO DAILY 02/27/22 06/28/24 pregabalin 150 mg capsule 150 mg PO BID 02/27/22 06/28/24 tamsulosin 0.4 mg capsule 0.4 mg PO DAILY 02/27/22 06/28/24 tiotropium bromide 2.5 2 puff inhalation DAILY 02/27/22 06/28/24 mcg/actuation mist for inhalation (Spiriva Respimat) zinc gluconate 50 mg tablet 50 mg PO DAILY 02/27/22 06/28/24 calcium 315 mg (as 1 tab PO DAILY 03/20/22 06/28/24 citrate)-vitamin D3 5 mcg (200 unit) tablet cholecalciferol (vitamin D3) 25 25 mcg PO DAILY 03/20/22 06/28/24 mcg (1,000 unit) capsule guaifenesin 200 mg tablet 200 mg PO DAILY PRN Congestion 03/20/22 06/28/24 lisinopril 5 mg tablet 7.5 mg PO DAILY 03/20/22 06/28/24 Previous Rx's ?Medication ?Instructions ?Recorded ferrous gluconate 324 mg (38 mg 648 mg (2 x 324 mg (38 mg iron)) 03/20/22 iron) tablet PO DAILY 30 days #60 tabs orthapedic shoes #1 ea 07/29/23 triamcinolone acetonide 0.1 % 1 applic topical BID #30 grams 01/12/24 topical ointment azithromycin 500 mg tablet 500 mg PO DAILY 5 days #5 tabs 02/12/24 (Zithromax) hydrocodone 5 mg-acetaminophen 325 1 tab PO Q6H PRN pain #14 tabs 05/28/24 mg tablet hydrocodone 5 mg-acetaminophen 325 1 tab PO Q6H #20 tabs 09/22/24 mg tablet Allergies Allergy/AdvReac Type Severity Reaction Status Date / Time Penicillins Allergy ALGY-Hives Verified 09/22/24 02:55 Sulfa (Sulfonamide Allergy ALGY-Hives Verified 09/22/24 02:55 Antibiotics) Review of Systems Const: Denies: fever(s) or chills Card: Denies: chest pain Resp: Reports: dyspnea GI: Reports: abdominal pain and bloating : Denies: dysuria, urinary frequency or urinary urgency Musc: Denies: neck pain or back pain Skin/Breast: Denies: rash PFSH ED PFSH: Medical History Pancytopenia Family History Mother COPD with acute exacerbation Sister COPD with acute exacerbation Other Cancer Social History (Reviewed 10/17/24 @ 15:39 by CHRISTIN Elise Smoking and tobacco/nicotine status: former use of tobacco/nicotine Second hand smoke exposure: Yes Alcohol intake: never Substance/Drug Use: never Adopted: No Caregiver/support person: Yes Lives independently: Yes Household members: significant other Housing: House Number of children: 2 Number of grandchildren: 4 Highest education level completed: 7th Grade service: Yes status: Discharged branch: [employer] Current occupational exposures/hazards: No Pets and animals: Yes Sexually active: Yes Do you think of yourself as: Straight/Heterosexual Current gender identity: Male Special shaun needs: No Agree to transfusion: Yes Physical Exam Const: GENERAL APPEARANCE: cooperative ORIENTATION/CONSCIOUSNESS: Yes awake, Yes oriented to person, Yes oriented to place and Yes oriented to time HENMT: COMMON NORMALS: normocephalic, atraumatic and hearing grossly normal bilaterally HEAD & SCALP: normocephalic and atraumatic Resp: COMMON NORMALS: normal respiratory effort, No retractions, No use of accessory muscles and clear to auscultation bilaterally AUSCULTATION: clear to auscultation bilaterally Cardio: COMMON NORMALS: regular rate, regular rhythm and No murmurs present (Cardio) RATE: regular rate RHYTHM: regular rhythm GI: COMMON NORMALS: No hepatosplenomegaly present INSPECTION: Yes abdominal distension and Yes Fluid wave present AUSCULTATION: Yes normoactive bowel sounds PALPATION: Yes Tenderness to palpation present (GI), No Guarding due to palpation present (GI) and Yes No hepatosplenomegaly present PERCUSSION: Fluid wave present Extremity: COMMON NORMALS: normal to inspection, capillary refill normal and no calf tenderness GENERAL: Yes edema (2+ edema lower extremities to the level of the knees) Neuro: SENSORIUM/ORIENTATION: Yes oriented to person, Yes oriented to place and Yes oriented to time Skin: COMMON NORMALS: no rashes or lesions noted GENERAL SKIN EXAM: no rashes or lesions noted Course Vital Signs: Vital signs: Vital Signs Temperature 98.1 F 10/17/24 15:32 Pulse Rate 76 10/17/24 18:19 Respiratory Rate 13 10/17/24 16:35 Blood Pressure 156/69 10/17/24 18:19 Pulse Oximetry 99 10/17/24 18:19 Oxygen Delivery Me thod Room Air 10/17/24 15:32 MDM - SOB/Dyspnea Medical Decision Making Consulted radiology and a paracentesis was done removed 8 L patient states he feels much better he feels like he can breathe well. Will discharge patient home culture and cytology and analysis done on the fluids. Recommend that he follow-up with his primary care doctor on the results on the peritoneal fluid analysis and culture. Additionally likely will need referral to GI. Medical Records I reviewed the patient's medical records. Lab Data I reviewed the patient's lab results. 10/17/24 15:20 10/17/24 15:20 Labs/Radiology: Radiology Impressions Chest X-Ray 10/17/24 15:30 IMPRESSION: Left hand overlying the chest as above. No acute chest abnormality identified. Abdomen/Pelvis CT 10/17/24 15:38 IMPRESSION: 1. Hepatic cirrhosis with massive ascites and splenomegaly 2. Right inguinal hernia containing fluid Paracentesis Ultrasound 10/17/24 15:38 IMPRESSION: Uncomplicated paracentesis yielding 8000 ml of peritoneal fluid. Laboratory Results WBC 6.20 10^3/uL (3.29-11.43) 10/17/24 15:20 RBC 2.94 10^6/uL (3.85-5.65) L 10/17/24 15:20 Hgb 9.30 g/dL (11.27-16.99) L 10/17/24 15:20 Hct 30.0 % (37-53) L 10/17/24 15:20 MCV 102.0 fl (82-101) H 10/17/24 15:20 MCH 31.6 pg (27-33) 10/17/24 15:20 MCHC 31.0 g/dL (30-55) 10/17/24 15:20 RDW 17.2 % (12.1-15.1) H 10/17/24 15:20 Plt Count 89 10^3/cmm (157-399) L 10/17/24 15:20 MPV 11.6 fL (7.4-10.4) H 10/17/24 15:20 Neut % (Auto) 77.7 % 10/17/24 15:20 Lymph % (Auto) 13.1 % 10/17/24 15:20 [place] % (Auto) 7.6 % 10/17/24 15:20 Eos % (Auto) 0.8 % 10/17/24 15:20 Baso % (Auto) 0.3 % 10/17/24 15:20 Neut # (Auto) 4.82 10^3/uL (1.8-7.7) 10/17/24 15:20 Lymph # (Auto) 0.8 10^3/uL (0.8-4.8) 10/17/24 15:20 [place] # (Auto) 0.5 10^3/uL (0.2-0.9) 10/17/24 15:20 Eos # (Auto) 0.1 10^3/uL (0.0-0.8) 10/17/24 15:20 Baso # (Auto) 0.0 10^3/uL (0.0-0.1) 10/17/24 15:20 Nucleated RBC % (auto) 0 % 10/17/24 15:20 Nucleated RBCs # 0.0 /100WBC 10/17/24 15:20 PT 16.30 SECONDS (12.1-14.9) H 10/17/24 15:20 INR 1.23 (0.8-1.2) H 10/17/24 15:20 Sodium 143 mmol/L (136-145) 10/17/24 15:20 Potassium 3.4 mmol/L (3.5-5.1) L 10/17/24 15:20 Chloride 108 mmol/L (98-107) H 10/17/24 15:20 Carbon Dioxide 26 mmol/L (22-29) 10/17/24 15:20 Anion Gap 12.4 (5-19) 10/17/24 15:20 BUN 13 mg/dL (8-23) 10/17/24 15:20 Creatinine 1.0 mg/dL (0.7-1.2) 10/17/24 15:20 GFR Calculation Not Reportable 10/17/24 15:20 Glucose 92 mg/dL (65-115) 10/17/24 15:20 Calculated Osmolality 296 mOsm/kg (285-295) H 10/17/24 15:20 Calcium 8.1 mg/dL (8.5-10.5) L 10/17/24 15:20 Total Bilirubin 1.5 mg/dL (0.15-1.2) H 10/17/24 15:20 AST 36 U/L (0-40) 10/17/24 15:20 ALT 17 U/L (0-41) 10/17/24 15:20 Alkaline Phosphatase 160 U/L (40-130) H 10/17/24 15:20 Total Protein 6.4 g/dL (6.6-8.7) L 10/17/24 15:20 Albumin 2.9 g/dL (3.5-5.2) L 10/17/24 15:20 Globulin 3.5 g/dL (1.3-4.6) 10/17/24 15:20 Peritoneal Color Yellow (Pale Yellow) 10/17/24 17:00 Peritoneal Appearance Hazy (Clear) 10/17/24 17:00 Peritoneal WBC 125 /uL 10/17/24 17:00 Peritoneal RBC 0 10^3/uL 10/17/24 17:00 Periton Mononu # Auto 0.097 10^3/uL 10/17/24 17:00 Mononuclear WBCs % 77.600 % 10/17/24 17:00 Polynuclear WBCs % 22.400 % 10/17/24 17:00 Perit Polynuc WBCs # 0.028 10^3/uL 10/17/24 17:00 Peritoneal Diff Commnt Yes 10/17/24 17:00 All radiology interpretation(s) finalized by discharge Discharge Plan Discharge Patient Disposition: Home Clinical Impression: Ascites, Cirrhosis of liver, Anemia, Thrombocytopenia Condition: Stable Prescriptions: No Action pregabalin 150 mg capsule 150 mg PO BID methocarbamol 750 mg tablet 750 mg PO TID hydrochlorothiazide 25 mg tablet 25 mg PO DAILY amlodipine 2.5 mg tablet 2.5 mg PO DAILY pravastatin 40 mg tablet 40 mg PO DAILY allopurinol 100 mg tablet 100 mg PO DAILY omeprazole magnesium [Acid Offset Printer (omeprazole)] 20 mg capsule,delayed release(DR/EC) 20 mg PO BID tamsulosin 0.4 mg capsule 0.4 mg PO DAILY Spiriva Respimat 2.5 mcg/actuation mist 2 puff inhalation DAILY ascorbate calcium (vitamin C) 500 mg tablet 500 mg PO DAILY loratadine [Allergy Relief (loratadine)] 10 mg tablet 10 mg PO DAILY zinc gluconate 50 mg tablet 50 mg PO DAILY fluticasone propionate [Flonase Allergy Relief] 50 mcg/actuation spray,suspension 1 spray intranasal DAILY Rx Instructions: administer into each nostril fluticasone propion-salmeterol 100-50 mcg/dose blister with device 1 inh inhalation BID lisinopril 5 mg tablet 7.5 mg PO DAILY cholecalciferol (vitamin D3) 25 mcg (1,000 unit) capsule 25 mcg PO DAILY calcium citrate-vitamin D3 315 mg-5 mcg (200 unit) tablet 1 tab PO DAILY guaifenesin 200 mg tablet 200 mg PO DAILY PRN (Reason: Congestion) ferrous gluconate 324 mg (38 mg iron) tablet 648 mg PO DAILY 30 Days Qty: 60 0RF (DME) orthapedic shoes See Rx Instructions .Route .MEDSUPPLY Qty: 1 0RF Rx Instructions: As directed to the shoe yossi triamcinolone acetonide 0.1 % ointment 1 applic topical BID Qty: 30 0RF azithromycin [Zithromax] 500 mg tablet 500 mg PO DAILY 5 Days Qty: 5 0RF hydrocodone-acetaminophen 5-325 mg tablet 1 tab PO Q6H PRN (Reason: pain) Qty: 14 0RF hydrocodone-acetaminophen 5-325 mg tablet 1 tab PO Q6H Qty: 20 0RF Discharge Orders: Discharge ED (Routine); Ordered 10/17/24 Ordered By: Willi Butcher Referrals: Rocio Enriquez MD [Primary Care Provider, [facility]] Discharge Diet: Usual diet Discharge Activity: Resume usual activity Patient Instructions: Opioid Safety, Pain Management Activity Restrictions/Additional Instructions: Thank you for choosing [facility] for your healthcare needs today. It is very important that you follow up as instructed or that you return to the Emergency Department should you have concerns or if your condition changes or worsens in any way. You were seen in the emergency room with significant amount of ascites in your abdomen. The fluid comes from the liver condition called cirrhosis. We drained off 8 L of fluid. It is very likely that this fluid will recur over time. We did do studies on the test you should follow-up with your primary care doctor to follow-up on these and for possible referral to gastroenterology. Print Language: Albanian Coding Level of Care Code ED Folding Machine Setter for Seth Hermosillo
--- NOTE | 2024-10-17 15:38 | US_ITS ---
WS: [id number] ULTRASOUND-GUIDED THERAPEUTIC PARACENTESIS Procedure, risks, and complications have been explained to the patient. Consent is obtained. Utilizing aseptic technique and 1% buffered lidocaine, a small dermatome was made through which a 5 Ivorian Yueh catheter was inserted. Approximately 8000 ml of clear peritoneal fluid was obtained without difficulty. No complications encountered. US/US paracentesis abd w [id number] IMPRESSION: Uncomplicated paracentesis yielding 8000 ml of peritoneal fluid.
--- NOTE | 2024-10-17 15:38 | CTR_ITS ---
PROCEDURE INFORMATION: Exam: CT Abdomen And Pelvis Without Contrast Exam date and time: 10/17/2024 3:50 PM Age: 79 years old Clinical indication: Abdominal pain; Generalized TECHNIQUE: Imaging protocol: Computed tomography of the abdomen and pelvis without contrast. Radiation optimization: All CT scans at this facility use at least one of these dose optimization techniques: automated exposure control; mA and/or kV adjustment per patient size (includes targeted exams where dose is matched to clinical indication); or iterative reconstruction. COMPARISON: CR (PELVIS, ) 09/22/2024 3:27 AM RADIATION DOSE METRICS: Total DLP (mGy-cm): 1066.03 FINDINGS: Lungs: Lung bases are clear. No pleural effusion. Liver: The liver demonstrates an irregular contour and parenchymal heterogeneity consistent with cirrhosis. I see no liver mass. Gallbladder and biliary ducts: Normal. No calcified stones. No ductal dilation. Pancreas: Normal. No ductal dilation. Spleen: Prominent splenomegaly noted. Adrenal glands: Normal. No mass. Kidneys and ureters: Normal. No hydronephrosis. Stomach and bowel: Unremarkable. No obstruction. No mucosal thickening. Appendix: No evidence of appendicitis. Intraperitoneal space: Severe ascites is noted throughout the abdomen and pelvis. Vasculature: Unremarkable. No abdominal aortic aneurysm. Lymph nodes: Unremarkable. No enlarged lymph nodes. Urinary bladder: Unremarkable as visualized. Reproductive: Unremarkable as visualized. Bones/joints: Unremarkable. No acute fracture. Soft tissues: Diffuse body wall edema is noted. A right inguinal hernia contains fluid. CT/CT abdomen pelvis wo con [id number] IMPRESSION: 1. Hepatic cirrhosis with massive ascites and splenomegaly 2. Right inguinal hernia containing fluid
[2024-10-17 15:43] LABS: Basophils % 0.3 %; Eosinophils # 0.1 10^3/uL (0.0-0.8); Eosinophils % 0.8 %; Lymphocytes # 0.8 10^3/uL (0.8-4.8); Lymphocytes % 13.1 %; Mean Corpuscular Hemoglobin 31.6 pg (27-33); Mean Platelet Volume 11.6 fL (7.4-10.4); Monocytes # 0.5 10^3/uL (0.2-0.9); Monocytes % 7.6 %; Neutrophils # 4.82 10^3/uL (1.8-7.7); Neutrophils % 77.7 %; Nucleated Red Blood Cells % 0 %; Platelet Count 89 10^3/cmm (157-399); Red Blood Count 2.94 10^6/uL (3.85-5.65); Red Cell Distribution Width 17.2 % (12.1-15.1)
[2024-10-17 16:07] LABS: INR 1.23 (0.8-1.2)
[2024-10-17 16:08] LABS: Alanine Aminotransferase 17 U/L (0-41); Albumin Level 2.9 g/dL (3.5-5.2); Alkaline Phosphatase 160 U/L (40-130); Anion Gap 12.4 (5-19); Aspartate Amino Transferase 36 U/L (0-40); Blood Urea Nitrogen 13 mg/dL (8-23); Calcium 8.1 mg/dL (8.5-10.5); Carbon Dioxide 26 mmol/L (22-29); Chloride 108 mmol/L (98-107); Creatinine Clr Calc Pharmacy 69.7569; Globulin 3.5 g/dL (1.3-4.6); Glucose 92 mg/dL (65-115); Osmolality Calculated 296 mOsm/kg (285-295); Potassium 3.4 mmol/L (3.5-5.1); Sodium 143 mmol/L (136-145); Total Bilirubin 1.5 mg/dL (0.15-1.2); Total Protein 6.4 g/dL (6.6-8.7)
--- NOTE | 2024-10-17 16:34 | PC.PHAR ---
[facility] 10/17/24 4:35pm
[2024-10-17 16:35] VITALS: BP 165/85; PULSE 73; RESP 13; O2SAT 99
[2024-10-17 17:30] LABS: Appearance, Peritoneal Fluid Hazy (Clear); Color, Peritoneal Fluid Yellow (Pale Yellow); Cyto Order Verification No Order
[2024-10-17 17:33] LABS: Mononuclear #, Pertinoneal Fl 0.097 10^3/uL; Polynuclear # Cells, Perit 0.028 10^3/uL; RBC Pertioneal Fluid 0 10^3/uL; WBC Peritoneal Fluid 125 /uL
[2024-10-17 17:43] LABS: Pathology Referral Yes
[2024-10-17 18:19] VITALS: BP 156/69; PULSE 76; O2SAT 99
--- NOTE | 2024-10-17 18:28 | PC.NURSE ---
Per Dr Gan, Paracentesis stopped at 1731. Total of 8 liters removed. Pt tolerated procedure well. Vitals remained stable throughout the procedure.
== END 2024-10-17 18:31 | disposition home or self-care (01) ==
PROVIDERS: Emergency Provider Family Medicine; PCP Family Medicine
DX: K74.60 Unspecified cirrhosis of liver (principal); R18.8 Other ascites; D64.9 Anemia, unspecified; D69.6 Thrombocytopenia, unspecified; Z87.891 Personal history of nicotine dependence
CPT/HCPCS: 49083; 71045; 74176; 80053; 80503; 85025; 85610; 87070; 87075; 87205; 89050; 93005; 99285; 99291

== ENCOUNTER 2024-10-24 14:26 | Emergency (ER) | payer OTHER, MEDICARE, SELFPAY ==
[2024-10-24] VITALS (8 sets, daily range): BP systolic 144–155; BP diastolic 53–76; PULSE 66–86; RESP 16; TEMP 36.6; O2SAT 98–100
--- NOTE | 2024-10-24 14:58 | W.ED.ABDPA2 ---
HPI - Abdominal Pain General: Chief Complaint: Abdominal Pain Stated Complaint: groin swelling, abd pain Time Seen by Provider: 10/24/24 14:48 Source: patient Mode of arrival: wheelchair Limitations: no limitations History of Present Illness: Patient is a 79-year-old male with a longstanding history of liver disease here for therapeutic paracentesis. Patient was here approximately a week ago and had 8 L removed from his abdomen. Labs and cultures performed which ruled out SBP. He was seen at the walk-in clinic and referred here. He is complaining of abdominal pain and shortness of breath. Vital signs are stable upon arrival. He does not see a liver specialist. [facility] He is not complaining of fevers. States he felt better following his last paracentesis. MD elicited complaint: abdominal pain (ascites ) Pertinent past history: other (Liver disease/cirrhosis) Onset (ago): day(s) Pain Consistency: constant Location: Diffuse Severity: moderate Radiation: none Migration to: no migration Exacerbating factors: nothing Relieving factors: other (Paracentesis) Associated Symptoms: Denies change in bowel habits, chills, fever(s), hematochezia, melena and vomiting Related Data Home Medications ?Medication ?Instructions ?Recorded ?Confirmed allopurinol 100 mg tablet 100 mg PO DAILY 02/27/22 10/24/24 amlodipine 2.5 mg tablet 2.5 mg PO DAILY 02/27/22 10/24/24 ascorbate calcium (vitamin C) 500 500 mg PO DAILY 02/27/22 10/24/24 mg tablet fluticasone 100 mcg-salmeterol 50 1 inh inhalation BID 02/27/22 10/24/24 mcg/dose blistr powdr for inhalation fluticasone propionate 50 1 spray intranasal DAILY 02/27/22 10/24/24 mcg/actuation nasal spray,suspension (Flonase Allergy Relief) hydrochlorothiazide 25 mg tablet 25 mg PO DAILY 02/27/22 10/24/24 loratadine 10 mg tablet (Allergy 10 mg PO DAILY 02/27/22 10/24/24 Relief (loratadine)) methocarbamol 750 mg tablet 750 mg PO TID 02/27/22 10/24/24 omeprazole magnesium 20 mg 20 mg PO BID 02/27/22 10/24/24 capsule,delayed release (Acid Disability Specialist (omeprazole)) pravastatin 40 mg tablet 40 mg PO DAILY 02/27/22 10/24/24 pregabalin 150 mg capsule 150 mg PO BID 02/27/22 10/24/24 tamsulosin 0.4 mg capsule 0.4 mg PO DAILY 02/27/22 10/24/24 tiotropium bromide 2.5 2 puff inhalation DAILY 02/27/22 10/24/24 mcg/actuation mist for inhalation (Spiriva Respimat) zinc gluconate 50 mg tablet 50 mg PO DAILY 02/27/22 10/24/24 calcium 315 mg (as 1 tab PO DAILY 03/20/22 10/24/24 citrate)-vitamin D3 5 mcg (200 unit) tablet cholecalciferol (vitamin D3) 25 25 mcg PO DAILY 03/20/22 10/24/24 mcg (1,000 unit) capsule guaifenesin 200 mg tablet 200 mg PO DAILY PRN Congestion 03/20/22 10/24/24 lisinopril 5 mg tablet 7.5 mg PO DAILY 03/20/22 10/24/24 Previous Rx's ?Medication ?Instructions ?Recorded ferrous gluconate 324 mg (38 mg 648 mg (2 x 324 mg (38 mg iron)) 03/20/22 iron) tablet PO DAILY 30 days #60 tabs orthapedic shoes #1 ea 07/29/23 triamcinolone acetonide 0.1 % 1 applic topical BID #30 grams 01/12/24 topical ointment hydrocodone 5 mg-acetaminophen 325 1 tab PO Q6H #20 tabs 09/22/24 mg tablet Allergies Allergy/AdvReac Type Severity Reaction Status Date / Time Penicillins Allergy ALGY-Hives Verified 10/24/24 13:33 Sulfa (Sulfonamide Allergy ALGY-Hives Verified 10/24/24 13:33 Antibiotics) Review of Systems Const: Denies: fever(s), chills, body aches, fatigue or malaise Card: Denies: chest pain Resp: Reports: dyspnea; Denies: productive cough, non-productive cough or chest congestion GI: Reports: abdominal pain; Denies: vomiting, change in bowel habits, hematochezia or melena Musc: Reports: extremity swelling (chronic) Neuro: Denies: headache(s) or dizziness PFSH ED PFSH: Medical History Pancytopenia Family History Mother COPD with acute exacerbation Sister COPD with acute exacerbation Other Cancer Social History Smoking and tobacco/nicotine status: former use of tobacco/nicotine Second hand smoke exposure: Yes Alcohol intake: never Substance/Drug Use: never Adopted: No Caregiver/support person: Yes Lives independently: Yes Household members: significant other Housing: House Number of children: 2 Number of grandchildren: 4 Highest education level completed: 7th Grade service: Yes status: Discharged branch: [employer] Current occupational exposures/hazards: No Pets and animals: Yes Sexually active: Yes Do you think of yourself as: Straight/Heterosexual Current gender identity: Male Special shaun needs: No Agree to transfusion: Yes Physical Exam Const: COMMON NORMALS: patient oriented x3, no limitations and alert GENERAL APPEARANCE: cooperative and ill appearing (chronic) ORIENTATION/CONSCIOUSNESS: Yes awake, Yes oriented to person, Yes oriented to place and Yes oriented to time HENMT: COMMON NORMALS: normocephalic and atraumatic HEAD & SCALP: normal to inspection, normocephalic and atraumatic Eye: COMMON NORMALS: no scleral icterus Resp: COMMON NORMALS: normal respiratory effort and clear to auscultation bilaterally AUSCULTATION: clear to auscultation bilaterally Cardio: COMMON NORMALS: regular rate and regular rhythm RATE: regular rate RHYTHM: regular rhythm GI: COMMON NORMALS: Soft to palpation INSPECTION: Yes abdominal distension, Yes Fluid wave present and Yes other (ascites ) PALPATION: Yes Soft to palpation and Yes Ascites present PERCUSSION: Fluid wave present Extremity: GENERAL: Yes edema Neuro: COMMON NORMALS: patient oriented x3 SENSORIUM/ORIENTATION: Yes alert, Yes oriented to person, Yes oriented to place and Yes oriented to time Course Vital Signs: Vital signs: Vital Signs Temperature 97.8 F 10/24/24 14:30 Pulse Rate 69 10/24/24 18:00 Respiratory Rate 16 10/24/24 18:00 Blood Pressure 146/67 10/24/24 18:00 Pulse Oximetry 98 10/24/24 18:00 Oxygen Delivery Me thod Room Air 10/24/24 18:00 MDM - Abdominal Pain Medical Decision Making Patient here for therapeutic paracenteses-had over 7L removed-albumin replaced. He has longstanding history of liver cirrhosis/ascites. He was here last week for paracentesis. He had culture/fluid analysis performed which ruled out SBP. He has no symptoms of this today. Vital signs are stable. Blood work overall is at baseline. Recommend he follow-up with primary care. Hopes that eventually they can schedule him for routine outpatient paracentesis. Will place referral with case management to get him set up with hepatology. Medical Records I reviewed the patient's medical records. Lab Data I reviewed the patient's lab results. 10/24/24 15:10 10/24/24 15:10 Labs/Radiology: Radiology Impressions Chest X-Ray 10/24/24 15:04 IMPRESSION: 1. No acute cardiopulmonary findings. 2. Left humeral neck fracture is similar to 09/22/2024. Laboratory Results WBC 6.82 10^3/uL (3.29-11.43) 10/24/24 15:10 RBC 2.82 10^6/uL (3.85-5.65) L 10/24/24 15:10 Hgb 8.90 g/dL (11.27-16.99) L 10/24/24 15:10 Hct 29.7 % (37-53) L 10/24/24 15:10 MCV 105.3 fl (82-101) H 10/24/24 15:10 MCH 31.6 pg (27-33) 10/24/24 15:10 MCHC 30.0 g/dL (30-55) 10/24/24 15:10 RDW 17.2 % (12.1-15.1) H 10/24/24 15:10 Plt Count 67 10^3/cmm (157-399) L 10/24/24 15:10 MPV 12.8 fL (7.4-10.4) H 10/24/24 15:10 Neut % (Auto) 77.0 % 10/24/24 15:10 Lymph % (Auto) 11.7 % 10/24/24 15:10 [place] % (Auto) 9.4 % 10/24/24 15:10 Eos % (Auto) 0.9 % 10/24/24 15:10 Baso % (Auto) 0.6 % 10/24/24 15:10 Neut # (Auto) 5.25 10^3/uL (1.8-7.7) 10/24/24 15:10 Lymph # (Auto) 0.8 10^3/uL (0.8-4.8) 10/24/24 15:10 [place] # (Auto) 0.6 10^3/uL (0.2-0.9) 10/24/24 15:10 Eos # (Auto) 0.1 10^3/uL (0.0-0.8) 10/24/24 15:10 Baso # (Auto) 0.0 10^3/uL (0.0-0.1) 10/24/24 15:10 Nucleated RBC % (auto) 0 % 10/24/24 15:10 Nucleated RBCs # 0.0 /100WBC 10/24/24 15:10 Sodium 139 mmol/L (136-145) 10/24/24 15:10 Potassium 3.7 mmol/L (3.5-5.1) 10/24/24 15:10 Chloride 109 mmol/L (98-107) H 10/24/24 15:10 Carbon Dioxide 19 mmol/L (22-29) L 10/24/24 15:10 Anion Gap 14.7 (5-19) 10/24/24 15:10 BUN 15 mg/dL (8-23) 10/24/24 15:10 Creatinine 0.8 mg/dL (0.7-1.2) 10/24/24 15:10 GFR Calculation Not Reportable 10/24/24 15:10 Glucose 91 mg/dL (65-115) 10/24/24 15:10 Calculated Osmolality 288 mOsm/kg (285-295) 10/24/24 15:10 Calcium 8.1 mg/dL (8.5-10.5) L 10/24/24 15:10 Total Bilirubin 1.1 mg/dL (0.15-1.2) 10/24/24 15:10 AST 36 U/L (0-40) 10/24/24 15:10 ALT 17 U/L (0-41) 10/24/24 15:10 Alkaline Phosphatase 152 U/L (40-130) H 10/24/24 15:10 Total Protein 5.8 g/dL (6.6-8.7) L 10/24/24 15:10 Albumin 2.6 g/dL (3.5-5.2) L 10/24/24 15:10 Globulin 3.2 g/dL (1.3-4.6) 10/24/24 15:10 XR interpretation done by ED provider, pending radiology final review Discharge Plan Discharge Patient Disposition: Home Clinical Impression: Status post abdominal paracentesis Ascites Qualifiers: Ascites type: due to alcoholic cirrhosis Qualified Code(s): K70.31 - Alcoholic cirrhosis of liver with ascites Condition: Stable Prescriptions: No Action pregabalin 150 mg capsule 150 mg PO BID methocarbamol 750 mg tablet 750 mg PO TID hydrochlorothiazide 25 mg tablet 25 mg PO DAILY amlodipine 2.5 mg tablet 2.5 mg PO DAILY pravastatin 40 mg tablet 40 mg PO DAILY allopurinol 100 mg tablet 100 mg PO DAILY omeprazole magnesium [Acid Disability Specialist (omeprazole)] 20 mg capsule,delayed release(DR/EC) 20 mg PO BID tamsulosin 0.4 mg capsule 0.4 mg PO DAILY Spiriva Respimat 2.5 mcg/actuation mist 2 puff inhalation DAILY ascorbate calcium (vitamin C) 500 mg tablet 500 mg PO DAILY loratadine [Allergy Relief (loratadine)] 10 mg tablet 10 mg PO DAILY zinc gluconate 50 mg tablet 50 mg PO DAILY fluticasone propionate [Flonase Allergy Relief] 50 mcg/actuation spray,suspension 1 spray intranasal DAILY Rx Instructions: administer into each nostril fluticasone propion-salmeterol 100-50 mcg/dose blister with device 1 inh inhalation BID lisinopril 5 mg tablet 7.5 mg PO DAILY cholecalciferol (vitamin D3) 25 mcg (1,000 unit) capsule 25 mcg PO DAILY calcium citrate-vitamin D3 315 mg-5 mcg (200 unit) tablet 1 tab PO DAILY guaifenesin 200 mg tablet 200 mg PO DAILY PRN (Reason: Congestion) ferrous gluconate 324 mg (38 mg iron) tablet 648 mg PO DAILY 30 Days Qty: 60 0RF (DME) orthapedic shoes See Rx Instructions .Route .MEDSUPPLY Qty: 1 0RF Rx Instructions: As directed to the shoe yossi triamcinolone acetonide 0.1 % ointment 1 applic topical BID Qty: 30 0RF hydrocodone-acetaminophen 5-325 mg tablet 1 tab PO Q6H Qty: 20 0RF Discharge Orders: Discharge ED (Routine); Ordered 10/24/24 Ordered By: Bharti Rios Referrals: Rocio Enriquez MD [Primary Care Provider, [facility]] Patient Instructions: Ascites (ED), Paracentesis (DC), Paracentesis Activity Restrictions/Additional Instructions: As we discussed, please follow-up with your primary care provider as soon as possible. I will place a case management referral to try to get you set up with a liver specialist. You need to speak to primary care about scheduling you for outpatient therapeutic paracenteses. You may return to the emergency department at anytime for any further concerns you may have. Print Language: Arabic Coding Level of Care Code ED Market Developer for Seth Hermosillo
--- NOTE | 2024-10-24 15:04 | XRR_ITS ---
PROCEDURE INFORMATION: Exam: XR Chest Exam date and time: 10/24/2024 3:06 PM Age: 79 years old Clinical indication: Other: Fluid buildup; Additional info: Fluid overload TECHNIQUE: Imaging protocol: Radiologic exam of the chest. Views: 1 view. COMPARISON: CR XR chest 1V portable [id number] 10/17/2024 4:04 PM FINDINGS: Lungs: Lung volumes are low. There is no visible consolidation. Pleural spaces: There is no pleural effusion or pneumothorax. Heart/Mediastinum: There is mild enlargement of the cardiac silhouette. Bones/joints: There is a fracture of the left humeral neck, similar to 09/22/2024. XR/XR chest 1V portable [id number] IMPRESSION: 1. No acute cardiopulmonary findings. 2. Left humeral neck fracture is similar to 09/22/2024.
--- NOTE | 2024-10-24 15:04 | US_ITS ---
WS: [id number] ULTRASOUND-GUIDED PARACENTESIS CLINICAL INFORMATION: Ascites COMPARISON: None. Procedure Informed consent: The risks, benefits, and alternatives of the procedure were discussed with the patient. Verbal and written consent was obtained. Timeout: A timeout was performed to confirm the correct patient, procedure, and site. Preparation: A suitable skin site was identified. The patient was prepped and draped in usual sterile fashion. Lidocaine 1% was used for local anesthesia. Catheter: 4 Mongolian One-step Yueh catheter. Side: LEFT lower quadrant. Fluid Volume: 7700 ml Color: Yellow DISPOSITION: Discarded safely. Complications: None. US/US paracentesis abd w [id number] IMPRESSION: Uncomplicated ultrasound-guided paracentesis. Removal of 7700 cc
[2024-10-24 15:16] LABS: Basophils % 0.6 %; Eosinophils # 0.1 10^3/uL (0.0-0.8); Eosinophils % 0.9 %; Hematocrit 29.7 % (37-53); Lymphocytes # 0.8 10^3/uL (0.8-4.8); Lymphocytes % 11.7 %; Mean Corpuscular Hemoglobin 31.6 pg (27-33); Mean Corpuscular Volume 105.3 fl (82-101); Mean Platelet Volume 12.8 fL (7.4-10.4); Monocytes # 0.6 10^3/uL (0.2-0.9); Monocytes % 9.4 %; Neutrophils # 5.25 10^3/uL (1.8-7.7); Nucleated Red Blood Cells % 0 %; Platelet Count 67 10^3/cmm (157-399); Red Blood Count 2.82 10^6/uL (3.85-5.65); Red Cell Distribution Width 17.2 % (12.1-15.1); White Blood Count 6.82 10^3/uL (3.29-11.43)
[2024-10-24 15:35] LABS: Alanine Aminotransferase 17 U/L (0-41); Albumin Level 2.6 g/dL (3.5-5.2); Alkaline Phosphatase 152 U/L (40-130); Anion Gap 14.7 (5-19); Aspartate Amino Transferase 36 U/L (0-40); Blood Urea Nitrogen 15 mg/dL (8-23); Calcium 8.1 mg/dL (8.5-10.5); Carbon Dioxide 19 mmol/L (22-29); Chloride 109 mmol/L (98-107); Creatinine Clr Calc Pharmacy 95.6505; Globulin 3.2 g/dL (1.3-4.6); Glucose 91 mg/dL (65-115); Osmolality Calculated 288 mOsm/kg (285-295); Potassium 3.7 mmol/L (3.5-5.1); Sodium 139 mmol/L (136-145); Total Bilirubin 1.1 mg/dL (0.15-1.2); Total Protein 5.8 g/dL (6.6-8.7)
[2024-10-24] MEDS: albumin 50 G/200 ML BAG 60 G IV (18:32)
--- NOTE | 2024-10-31 08:00 | DCPLANNER ---
faxed referral packet to hepatology [facility] [phone]
== END 2024-10-24 19:47 | disposition home or self-care (01) ==
PROVIDERS: Emergency Provider Physician Assistant; PCP Family Medicine
DX: K70.31 Alcoholic cirrhosis of liver with ascites (principal); Z98.890 Other specified postprocedural states; Z87.891 Personal history of nicotine dependence
CPT/HCPCS: 36415; 49083; 71045; 80053; 85025; 96365; 99284; P9046